=== PATIENT | male | born 1945 | race Caucasian/White ===

== ENCOUNTER 2022-07-26 11:14 | Outpatient (CLI) | payer OTHER, SELFPAY ==
[2022-07-26 12:35] LABS: Basophils Absolute Auto 0.1 K/mm3 (0.0-0.1); Basophils Percent Auto 0.7 % (0.2-1.2); Eosinophils Absolute Auto 0.7 K/mm3 (0-0.3); Eosinophils Percent Auto 7.1 % (0-4.4); Hematocrit 41.1 % (42.0-52.0); Hemoglobin 13.1 g/dL (14.0-18.0); Immature Granulocyte Absolute 0.04 K/mm3 (0.00-0.031); Immature Granulocyte Percent A 0.4 % (0-0.5); Lymphocytes Absolute Auto 1.38 K/mm3 (0.9-3.2); Lymphocytes Percent Auto 13.9 % (18.3-44.2); Mean Corpuscular HGB Conc 31.9 g/dl (32-36); Mean Corpuscular Hemoglobin 31.2 pg (26-34); Mean Corpuscular Volume 97.9 fl (80-100); Mean Platelet Volume 9.3 fl (7.4-10.4); Monocytes Absolute Auto 0.7 K/mm3 (0.1-0.6); Monocytes Percent Auto 7.5 % (2.6-8.5); Neutrophils Percent Auto 70.4 % (45.5-73.1); Platelet Count Result 249 k/mm3 (150-375); Red Cell Distribution Width 13.8 % (11.5-14.5); White Blood Count 9.9 K/mm3 (4.5-10.0)
[2022-07-26 12:46] LABS: Anion Gap 8 mmol/L (8-16); Blood Urea Nitrogen 48 mg/dL (9-20); Calcium 8.7 mg/dL (8.4-10.2); Carbon Dioxide 25 mmol/L (22-30); Chloride 107 mmol/L (98-107); Estimated Glomerular Filt Rate 28; Glucose 146 mg/dL (65-110); Potassium 4.2 mmol/L (3.4-5.0); Sodium 140 mmol/L (137-145)
[2022-07-26 13:13] LABS: Hemoglobin A1C 6.9 % (<5.7)
== END 2022-07-26 11:15 | disposition home or self-care (01) ==
PROVIDERS: PCP Internal Medicine; Visit Provider Surgery Plastic and Reconstructive Surgery
DX: E11.9 Type 2 diabetes mellitus without complications (principal)
CPT/HCPCS: 36415; 80048; 83036; 85025

== ENCOUNTER 2022-08-03 08:46 | Outpatient (CLI) | payer OTHER, SELFPAY ==
--- NOTE | 2022-08-03 09:00 | ECG_ITS ---
Measurements Intervals Wyatt Rate: 76 P: 32 MS: 297 QRS: -12 QRSD: 106 T: 200 QT: 388 QTc: 438 Interpretive Statements SINUS RHYTHM WITH FIRST DEGREE AV BLOCK LEFT VENTRICULAR HYPERTROPHY AND ST-T CHANGE [VOLTAGE CRITERIA PLUS ST/T ABNORMALITY] INFERIOR MYOCARDIAL INFARCTION [40+ ms Q WAVE AND/OR ST/T ABNORMALITY IN II/aVF], OF INDETERMINATE AGE PROBABLE ANTEROSEPTAL MYOCARDIAL INFARCTION [35 ms Q WAVE IN V1-V4], OF INDETERMINATE AGE NO PREVIOUS ECG AVAILABLE FOR COMPARISON Electronically Signed On 08-03-2022 14:51:21 [employer]SEM[employer]PERVIS[employer] by Destinee Deal M.D.
[2022-08-03 10:14] LABS: INR 1.1; Prothrombin Time 13.9 Seconds (11.1-14.7)
== END 2022-08-03 08:47 | disposition home or self-care (01) ==
PROVIDERS: Anesthesiology; PCP Internal Medicine; Visit Provider Surgery Plastic and Reconstructive Surgery
DX: N28.9 Disorder of kidney and ureter, unspecified (principal); I10 Essential (primary) hypertension; Z01.818 Encounter for other preprocedural examination; I44.0 Atrioventricular block, first degree
CPT/HCPCS: 36415; 85610; 85730; 93005

== ENCOUNTER 2022-08-11 01:28 | Day surgery (SDC) | payer OTHER, SELFPAY ==
--- NOTE | 2022-08-02 14:00 | PC.NURSE ---
Report to the Outpatient Waiting Room, entrance under the green pavilion located off [facility], at time __0600 on date _08/11/22 . Planned Procedure Time: _0730 . Time changes happen often and if your time is changed the preop area will call you the afternoon before. - You and your visitor will be asked to self-screen and do not enter if you have any COVID symptoms. - Only one visitor is requested with a max of two and NO children visitors are allowed at this time. - The patient visitor may be requested to leave or wait in car when not with patient due to distancing restrictions. - A mask is optional within the hospital at this time. Patients may have clear liquids (water, carbonated beverages, clear teas, apple juice) until 3 hours prior to surgery with a maximum of 20 ounces. - No food from midnight until time of surgery - Infants may have breast milk until 4 hours before surgery, infant formula 6 hours prior to surgery. - Children will be allowed to drink immediately following surgery. If applicable, please bring a bottle or sippy cup to assist with drinking. Juice, water, soda, and popsicles are readily available. For infants on formula, please bring formula the day of surgery. Pacifiers are allowed. Take the following medications with a SIP of water the morning of surgery: NONE DO NOT STOP ANY OF YOUR OTHER PRESCRIPTION MEDICATIONS PRIOR TO SURGERY ?EXCEPT THE FOLLOWING Medications to discontinue per physician __ELIQUIS AND ASPIRIN _PER DR HUERTAS (PT TO CALL) Please no make-up, nail paraguayan, hairspray, perfume, deodorant, or body powder the day of surgery. No jewelry (including any body piercings) or valuables the day of surgery, leave them at home. Please take a shower or bath the night before, or the morning of, surgery with an antibacterial soap. Wear comfortable, loose fitting clothing. Children are encouraged to wear pajamas. - Jewelry must be removed prior to entering the operating room. Rings and piercings that are not removed may be cut off. - The hospital will not accept responsibility for valuables. - Please leave all valuables, including medications, at home the day of surgery. If you are going home after surgery, a licensed delivery truck driver must drive you home. - NO public transportation without another adult if you receive anesthesia. - We recommend that an adult stay with you for 24 hours following discharge. - We also recommend that you do not drive, make important decision, drink alcoholic beverages, or take any drugs that were not prescribed by your health care provider for at least 24 hours after your discharge time. For Pediatric surgeries, we recommend two adults accompany the child home. Follow any additional instructions given to you from your surgeon. If you or anyone in your household have experienced Covid symptoms in the past week, please notify your surgeon or the nurse liaison at the phone number below for possible testing. Telephone instructions given to _PATIENT and asked if any additional questions and then verbalized understanding. Patient advised to call surgeon office or pre surgery nurse liaison [phone] if any additional questions.
[2022-08-02 14:13] VITALS: BMI 30.2
[2022-08-11] VITALS (19 sets, daily range): BP systolic 136–180; BP diastolic 52–110; PULSE 75–100; RESP 14–30; TEMP 36.6–37.3; O2SAT 94–99
[2022-08-11 06:21] LABS: Urine Cotinine NEGATIVE
[2022-08-11] MEDS: LACTATED RINGERS 1,000 ML 30 ML IV CONT ×2 (06:30→09:53)
[2022-08-11 06:35] LABS: Glucose Point of Care 147 mg/dl (65-105)
--- NOTE | 2022-08-11 06:39 | WPDANESEPPF ---
Anes - Initial Pre Proc Eval Procedure: Operation Date: 08/11/22 07:30 Proposed Procedures p Abdominoplasty - Ken Doyle MD Date/Time: 08/11/22 06:39 Surgeon: Ken Doyle MD Pre Op Diagnosis: skin laxity Patient Data Age: 77 Gender: M Height: 1.75 m Weight: 93.05 kg Allergies Allergy/AdvReac Type Severity Reaction Status Date / Time ANTIHISTAMINES AdvReac Hypertensio Uncoded 08/02/22 14:07 n Home Medications Medication Instructions Recorded Confirmed Type acetaminophen 325 mg tablet 325 mg PO PRN PRN Pain 08/02/22 08/11/22 History (Tylenol) apixaban 5 mg tablet (Eliquis) 5 mg PO BID 08/02/22 08/11/22 History aspirin 81 mg tablet,delayed 81 mg PO DAILY 08/02/22 08/11/22 History release (Adult Low Dose Aspirin) atorvastatin 40 mg tablet 40 mg PO DAILY 08/02/22 08/11/22 History empagliflozin 10 mg tablet 10 mg PO DAILY 08/02/22 08/11/22 History (Jardiance) furosemide 40 mg tablet 40 mg PO DAILY 08/02/22 08/11/22 History indapamide 2.5 mg tablet 2.5 mg PO DAILY 08/02/22 08/11/22 History insulin lispro 100 unit/mL 1 sliding scale dose subcut 08/02/22 08/11/22 History subcutaneous solution (Humalog USEASDIRECTD U-100 Insulin) losartan 100 mg tablet 100 mg PO DAILY 08/02/22 08/11/22 History nintedanib 100 mg capsule (Ofev) 100 mg PO BID 08/02/22 08/11/22 History zolpidem 5 mg tablet 5 mg PO HS 08/02/22 08/11/22 History Laboratory Tests 08/11/22 08/11/22 06:05 06:33 POC Capillary Glucose 147 mg/dl H mg/dl (65-105) Cotinine Negative Patient hx anesthesia problems: none Family hx anesthesia problems: none Results Review: All pre-operative results and documents have been reviewed as part of the pre-operative evaluation. [facility] Past Medical History Medical History (Updated 08/11/22 @ 06:44 by Mihir Vergara MD) History of home oxygen therapy oxygen use at night and some days with exertion Obesity SAHIL on CPAP Pacemaker Paroxysmal A-fib Pulmonary fibrosis SOB (shortness of breath) on exertion Surgical History Surgical History (Updated 08/11/22 @ 06:41 by Mihir Vergara MD) History of cholecystectomy Social History Social History Smoking status: Never smoker Living arrangements: alone Spiritual care concerns: No Anes - Eval Final PreProcedure Day of Procedure 08/11/22 06:39 Patient weight: obese Heart: regular rate and rhythm (paced) Lungs: decreased breath sounds Airway: Mallampati scale class III Neurological: alert and oriented Last oral intake: >/= 8 hours ASA classification: IV Emergent: no Anesthetic plan: proceed Anesthesia type and monitoring: general ETT and standard monitoring Results Review: All pre-operative results and documents have been reviewed as part of the pre-operative evaluation. Informed Consent: The patient's anesthetic plan and its attendant risks including , PA, arrhythmia, ICU admission, post-op ventilation and benefits were discussed with the patient. He agrees to proceed. I reviewed his pre-op testing and notes of clearance from his primary doctor. Questions were solicited and answers provided to the satisfaction of the patient.
--- NOTE | 2022-08-11 06:55 | WPDHPUPDATE1 ---
History and Physical Update Update Date/Time: 08/11/22 06:55 History and Physical has been reviewed, including an updated exam of the patient. There are NO changes in the patient's condition. Today we spent extensive time again reviewing his medical / surgical history and unique risks to him including [id number] risks and risk of . We discussed how this is an elective surgery and he must understand these risks (which have been discussed extensively at each of his office visits as well). He is able to very clearly repeat these risks back to us, states the he completely understands this, that he is willing to accept these risks, and he would like to proceed. He has been evaluated by his PCP and anesthesia for this as well who he states that they have outlined these risks very clearly to him as well. He states that he has had plenty of time to think about this and has never wavered in his decision, understands the severity of what he has elected to do, understands the severity of his unique risk, and would like to proceed. All questions answered today to his satisfaction. Patient agrees to proceed with procedure.
--- NOTE | 2022-08-11 07:03 | W.PM.PROC2 ---
Procedure Note - Detailed Date of Procedure 08/11/22 Pre-op Diagnosis skin laxity Post-op Diagnosis Same Procedure Performed Progressive tension abdominoplasty Surgeon Ken Doyle MD Anesthesia General Findings Tissue removed: 2246.1 grams Description of Procedure He is here today for abdominoplasty. Previously and again today the risks, benefits, alternatives were discussed in extensive detail (see H&P update note). I wanted him to be very realistic about the risks involved as well as expectations. We discussed aftercare and what to monitor for. I was very upfront about the risks of wound breakdown leading to loss of skin, open wounds, and need for additional procedures with permanent abdominal deformity. We discussed DVT/PE risks and management. Made sure answered all of their questions to their satisfaction today and consent was obtained. They were marked in the preoperative holding area with their verification. The patient was taken to the operating room placed supine on the operating table. Anesthesia was provided by anesthesiology. They were prepped and draped in a standard sterile fashion. A surgical time-out was taken. I placed the patient in a flexed position to verify the upper and lower markings would reach. I then placed supine. A thorough abdominal examination was completed. Stab incisions were made and tumescent solution infiltrated. A 10 blade was used to make the upper incision. I continued dissection down to the level of fascia. Elevated just what was necessary for repair of the diastasis (10cm diastasis present) and advancement of flap preserving perforators when possible. I then again flexed the bed to verify the upper skin flap would reach the lower markings without tension. Once verified I placed her supine once again and a 10 blade used to make the lower incision. I elevated up to level the umbilicus and left the umbilicus intact on a well-vascularized stalk. The intervening tissue was removed. A 2 mm blunt cannula with 0.5% bupivicaine was injected deep to the fascia bilaterally. I plicated the diastasis recti using 0 PDO stratafix barbed suture. This was in 2 separate layers using 2 separate sutures as well. The patient was flexed and starting from superior to inferior began plication using 2-0 Vicryl to obliterate all space in a standard progressive tension fashion. At the umbilicus I marked out the location of the skin and inset this with 3-0 Monocryl and 4-0 Vicryl. I continued the remainder of the plication using 2-0 Vicryl until I reached my lower planned scar line. I trimmed any excess skin of the upper flap making sure this was a tension-free closure. I then approximated using a 3 point suture with 2-0 Vicryl followed by 3-0 stratafix ,running subcuticular 4-0 Monocryl, and tissue glue. Fluffs and an abdominal binder were placed. The patient was transferred to the bed in a flexed position. Awoken and taken to the PACU without difficulty. All instrument and sponge counts were correct at the end of the case. Estimated Blood Loss 40 Drains No Packing No Pathology None sent Complications No immediate complications Condition Stable Disposition PACU
[2022-08-11] MEDS: ceFAZolin 2 GM/D5W 50 ML 2 GM/50 ML BAG IVPB (07:23)
[2022-08-11] MEDS: TRANEXAMIC ACID 1,000MG/ISO100 1,000 MG/100 ML BAG 200 MG IVPB (07:35)
[2022-08-11] MEDS: LACTATED RINGERS IRRIG 1,000 ML, LIDOCAINE HCL 1% LOCAL INJ 50 ML, EPINEPHrine HCL INJ ... INFILTRATE (07:59)
[2022-08-11] MEDS: BUPIVACAINE/EPINEPHRINE 0.5% 10 ML VIAL 60 ML INFILTRATE (08:04)
[2022-08-11 10:12] LABS: Glucose Point of Care 216 mg/dl (65-105)
--- NOTE | 2022-08-11 10:47 | SUR.PHASEI ---
Patient meets PACU discharge criteria, unit bed unavailable at this time. Patient placed in extended recovery status.
[2022-08-11] MEDS: carisoprodoL (*CRX) 350 MG TABLET PO ×3 (12:49→23:31)
[2022-08-11 12:50] LABS: Glucose Point of Care 208 mg/dl (65-105)
[2022-08-11] MEDS: oxyCODONE/ACETAMINOPHEN (*CRX) 5-325 MG TABLET PO ×2 (14:01→20:13)
--- NOTE | 2022-08-11 15:38 | ADMGEN ---
This patient, Brett Cornelius, was admitted to Medical Room 244-01. Patient/family oriented to hospital policies and general routines including ID bracelet, bed and alarms, visiting hours, pain management, procedures, bathroom and other care routines, personal items, smoking policy, room service/diet, and visiting hours. Information on how to activate the Rapid Response Team has been discussed. Patient/Family are encouraged to report perceived risks to care and to ask questions if they do not understand what they are told or what they should do.
[2022-08-11 16:56] LABS: Glucose Point of Care 252 mg/dl (65-105)
[2022-08-11] MEDS: DOCUSATE SODIUM 100 MG CAPSULE PO (21:39)
--- NOTE | 2022-08-11 22:00 | WPDCN ---
Assessment and Plan Assessment and plan (1) Skin laxity: Code(s): L57.4 - Cutis laxa senilis Status: Acute Assessment and Plan: Postoperative day 0 status post elective abdominoplasty. Wound care, pain control, DVT prophylaxis deferred to Dr. Doyle. (2) Insulin dependent diabetes mellitus: Status: Chronic Assessment and Plan: He is on insulin pump but unfortunately he removed at this morning and does not have that here for review. He does not know his basal insulin rate and I cannot find any documentation his EMR to tell me his insulin requirements. We discussed starting a weight appropriate dose of Lantus this evening and he can resume his insulin pump tomorrow when he goes home however he would rather do sliding scale insulin as he has a tendency to have low glucose in the morning. Initiate sliding scale insulin, Accu-Cheks, and hypoglycemic protocol. Continue empagliflozin. (3) Hypertension: Code(s): I10 - Essential (primary) hypertension Status: Acute Assessment and Plan: Blood pressures were reviewed and they have been stable postoperatively. Continue antihypertensives and monitor. (4) Chronic kidney disease: Code(s): N18.9 - Chronic kidney disease, unspecified Status: Acute Assessment and Plan: Patient has stage IV chronic kidney disease. Check baseline labs in a.m.. (5) Chronic respiratory failure with hypoxia, on home oxygen therapy: Code(s): J96.11 - Chronic respiratory failure with hypoxia; Z99.81 - Dependence on supplemental oxygen Status: Acute Assessment and Plan: Wear CPAP with 4 L bleed in at nighttime. CPAP will be provided for the patient to use while hospitalized. (6) Paroxysmal atrial fibrillation: Code(s): I48.0 - Paroxysmal atrial fibrillation Status: Acute Assessment and Plan: Currently sounds to be in a sinus rhythm. Resume apixaban when okay with Dr. Doyle. (7) Obstructive sleep apnea on CPAP: Code(s): G47.33 - Obstructive sleep apnea (adult) (pediatric); Z99.89 - Dependence on other enabling machines and devices Status: Acute Assessment and Plan: CPAP will be provided for the patient to use while hospitalized. Plan Thank you for allowing us to participate in this patient's care. Please do not hesitate to contact us with any questions. HPI Data of Consult Date/Time: 08/11/22 22:00 Requesting Physician: Ken Doyle MD Consult Narrative Reason for consult: Diabetes management. Narrative: This is a 77-year-old male with insulin-dependent diabetes, hypertension, hyperlipidemia, pulmonary fibrosis, sleep apnea, and chronic kidney disease whom the hospitalist service has been consulted for help managing his diabetes postoperatively. He is status post abdominoplasty per Dr. Doyle today. Surgery was performed under general anesthesia with no immediate complications documented an estimated blood loss of 40 mL. Postoperatively he has been doing quite well and his pain is manageable. He has been tolerating a diet and denies nausea and vomiting. He also denies fever, chills, and sweats. No chest pain or shortness of breath. He removed his insulin pump this morning before surgery and his glucose has been as high as 252 just prior to dinner this evening. Unfortunately he does not know his basal insulin rate and he does not have his pump here to obtain that information. He believes his diabetes is well controlled and his most recent A1c was 6.9%. Review of Systems Review of Systems: Twelve systems were reviewed. No fever, chills, or sweats. No recent cold or flu symptoms. No chest pain or shortness of breath. No nausea or vomiting. He denies blurry vision, polydipsia, and polyuria. Except as documented, all other systems were reviewed and are negative. [facility] Past Medical History Medical History (Updated 08/11/22 @ 22:34 by Carin Mcdaniel,
[2022-08-11 22:33] LABS: Glucose Point of Care 219 mg/dl (65-105)
[2022-08-11 23:07] LABS: Glucose Point of Care 200 mg/dl (65-105)
[2022-08-12] VITALS: BP 135/64; PULSE 88; RESP 18; TEMP 37.1; O2SAT 96
[2022-08-12 06:00] VITALS: BP 129/61; PULSE 86; RESP 18; TEMP 37.1; O2SAT 96
[2022-08-12 06:13] LABS: Hematocrit 33.3 % (42.0-52.0); Hemoglobin 10.8 g/dL (14.0-18.0); Mean Corpuscular HGB Conc 32.4 g/dl (32-36); Mean Corpuscular Hemoglobin 30.8 pg (26-34); Mean Corpuscular Volume 94.9 fl (80-100); Mean Platelet Volume 9.2 fl (7.4-10.4); Platelet Count Result 197 k/mm3 (150-375); Red Blood Count 3.51 M/mm3 (4.6-6.20); White Blood Count 10.7 K/mm3 (4.5-10.0)
[2022-08-12] MEDS: carisoprodoL (*CRX) 350 MG TABLET PO (06:19)
[2022-08-12] MEDS: oxyCODONE/ACETAMINOPHEN (*CRX) 5-325 MG TABLET PO (06:19)
[2022-08-12 06:23] LABS: Alanine Aminotransferase 18 U/L (6-50); Albumin Level 3.4 g/dL (3.5-5.1); Alkaline Phosphatase 111 U/L (38-126); Anion Gap 7 mmol/L (8-16); Aspartate Amino Transferase 20 U/L (17-59); Bilirubin,Total 0.5 mg/dL (0.2-1.3); Blood Urea Nitrogen 52 mg/dL (9-20); Calcium 7.8 mg/dL (8.4-10.2); Carbon Dioxide 24 mmol/L (22-30); Chloride 106 mmol/L (98-107); Estimated CRCL calculation 25 ml/min; Estimated Glomerular Filt Rate 24; Glucose 174 mg/dL (65-110); Magnesium 1.7 mg/dL (1.6-2.3); Potassium 4.6 mmol/L (3.4-5.0); Sodium 137 mmol/L (137-145)
--- NOTE | 2022-08-12 07:08 | WPDPN ---
Progress Note: A&P Assessment and Plan (1) Skin laxity: Code(s): L57.4 - Cutis laxa senilis Status: Acute Assessment and Plan: Doing well. Will plan for discharge home later today if OK with hospitalist. May start Eliquis today. I will see him back. Today we had a lengthy discussion about the care. What to monitor for. Activity limitations. When to proceed to ER / dial 911 for emergencies. Call with any other questions or concerns. Lengthy open ended conversation, he voiced a clear understanding, we will see him back. (2) Hyperlipidemia: Code(s): E78.5 - Hyperlipidemia, unspecified Status: Acute (3) Hypertension: Code(s): I10 - Essential (primary) hypertension Status: Acute (4) Chronic kidney disease: Code(s): N18.9 - Chronic kidney disease, unspecified Status: Acute (5) Insulin dependent diabetes mellitus: Status: Chronic (6) Chronic respiratory failure with hypoxia, on home oxygen therapy: Code(s): J96.11 - Chronic respiratory failure with hypoxia; Z99.81 - Dependence on supplemental oxygen Status: Acute (7) Paroxysmal atrial fibrillation: Code(s): I48.0 - Paroxysmal atrial fibrillation Status: Acute (8) Obstructive sleep apnea on CPAP: Code(s): G47.33 - Obstructive sleep apnea (adult) (pediatric); Z99.89 - Dependence on other enabling machines and devices Status: Acute Subjective Date/time seen: 08/12/22 06:35 Interval history: Doing well after progressive tension abdominoplasty. Appreciate hospitalist assistance. He states he feels well. Pain controlled. No n/v. No f/c. No SOB. No CP. No calf tenderness. Review of Systems Review of Systems: All systems reviewed & are unremarkable except as noted in HPI and below Exam Narrative: A&O NOD Resp unlabored Abdomen soft. No signs of infection. No hematoma. No seroma. Good color / capillary refill. No calf tenderness. Negative Homann's Objective Data Vital Signs Vital Signs: Vital Signs - 24 hr 08/11/22 09:53 08/11/22 10:05 08/11/22 10:15 Temperature 37.3 C Pulse Rate 97 95 93 Respiratory Rate 30 H 25 H 22 H Blood Pressure 157/62 H 180/69 H 146/81 H Pulse Oximetry 99 99 95 Oxygen Delivery Simple Face Mask Simple Face Mask Room Air Oxygen Flow Rate 8 8 08/11/22 10:30 08/11/22 10:42 08/11/22 10:50 Temperature 36.6 C Pulse Rate 86 81 89 Respiratory Rate 20 24 H 18 Blood Pressure 160/77 H 155/80 H 160/74 H Pulse Oximetry 96 96 94 Oxygen Delivery Room Air Room Air Room Air Oxygen Flow Rate 08/11/22 11:05 08/11/22 11:20 08/11/22 11:35 Temperature Pulse Rate 85 88 81 Respiratory Rate 16 18 16 Blood Pressure 141/66 H 139/61 137/62 Pulse Oximetry Oxygen Delivery Room Air Room Air Room Air Oxygen Flow Rate 08/11/22 11:50 08/11/22 12:20 08/11/22 12:50 Temperature Pulse Rate 87 84 75 Respiratory Rate 16 14 18 Blood Pressure 148/65 H 136/52 L 151/65 H Pulse Oximetry Oxygen Delivery Room Air Room Air Room Air Oxygen Flow Rate 08/11/22 13:20 08/11/22 13:50 08/11/22 14:20 Temperature 36.9 C Pulse Rate 100 94 96 Respiratory Rate 14 16 16 Blood Pressure 146/85 H 142/68 H 150/110 H Pulse Oximetry 96 Oxygen Delivery Room Air Room Air Room Air Oxygen Flow Rate 08/11/22 14:50 08/11/22 16:00 08/11/22 16:42 Temperature 36.9 C Pulse Rate 91 81 Respiratory Rate 16 18 Blood Pressure 136/75 142/61 H Pulse Oximetry 96 Oxygen Delivery Room Air Room Air Oxygen Flow Rate 08/11/22 20:00 08/12/22 00:00 Temperature 36.8 C 37.1 C Pulse Rate 79 88 Respiratory Rate 18 18 Blood Pressure 166/84 H 135/64 Pulse Oximetry 97 96 Oxygen Delivery Oxygen Flow Rate Intake/Output Intake/Output: Intake & Output 08/09/22 08/10/22 08/11/22 08/12/22 23:59 23:59 23:59 23:59 Intake Total 1230 Output Total 900 Balance 330 Meds/Results Medications: Active Medications
--- NOTE | 2022-08-12 07:12 | PM.DS ---
DS: Admitting Diagnosis Discharge Date 08/12/2022 Admitting Diagnosis Skin laxity CKD HTN Insulin dependant DM DS: Discharge Diagnosis Discharge Diagnosis (1) Skin laxity: Code(s): L57.4 - Cutis laxa senilis Status: Acute (2) Hypertension: Code(s): I10 - Essential (primary) hypertension Status: Acute (3) Hyperlipidemia: Code(s): E78.5 - Hyperlipidemia, unspecified Status: Acute (4) Chronic kidney disease: Code(s): N18.9 - Chronic kidney disease, unspecified Status: Acute (5) Insulin dependent diabetes mellitus: Status: Chronic (6) Chronic respiratory failure with hypoxia, on home oxygen therapy: Code(s): J96.11 - Chronic respiratory failure with hypoxia; Z99.81 - Dependence on supplemental oxygen Status: Acute (7) Paroxysmal atrial fibrillation: Code(s): I48.0 - Paroxysmal atrial fibrillation Status: Acute (8) Obstructive sleep apnea on CPAP: Code(s): G47.33 - Obstructive sleep apnea (adult) (pediatric); Z99.89 - Dependence on other enabling machines and devices Status: Acute DS: Summary Hospital Course Hospital Course: Underwent progressive tension abdominoplasty uneventfully. Hospitalist assistance with chronic medical concerns. Post-operatively has done well. Will discharge home. Time Spent with Patient Time attestation: Total time spent providing and/or coordinating discharge services: Exam Narrative: A&O NOD Resp unlabored Abdomen soft. No signs of infection. No hematoma. No seroma. Good color / capillary refill. No calf tenderness. Negative Homann's DS: Data Data Completed and Pending Labs on day of discharge: Labs from last 24 hours 08/12/22 08/12/22 08/11/22 05:31 05:31 23:03 WBC 10.7 H RBC 3.51 L Hgb 10.8 L Hct 33.3 L MCV 94.9 MCH 30.8 MCHC 32.4 RDW 14.0 Plt Count 197 MPV 9.2 Sodium 137 Potassium 4.6 Chloride 106 Carbon Dioxide 24 Anion Gap 7 L BUN 52 H Creatinine 2.60 H Estim Creat Clear Calc 25 Estimated GFR 24 L Glucose 174 H POC Capillary Glucose 200 H Calcium 7.8 L Magnesium 1.7 Total Bilirubin 0.5 AST 20 ALT 18 Alkaline Phosphatase 111 Total Protein 7.0 Albumin 3.4 L 08/11/22 08/11/22 08/11/22 21:42 16:49 12:46 WBC RBC Hgb Hct MCV MCH MCHC RDW Plt Count MPV Sodium Potassium Chloride Carbon Dioxide Anion Gap BUN Creatinine Estim Creat Clear Calc Estimated GFR Glucose POC Capillary Glucose 219 H 252 H 208 H Calcium Magnesium Total Bilirubin AST ALT Alkaline Phosphatase Total Protein Albumin 08/11/22 10:01 WBC RBC Hgb Hct MCV MCH MCHC RDW Plt Count MPV Sodium Potassium Chloride Carbon Dioxide Anion Gap BUN Creatinine Estim Creat Clear Calc Estimated GFR Glucose POC Capillary Glucose 216 H Calcium Magnesium Total Bilirubin AST ALT Alkaline Phosphatase Total Protein Albumin Discharge Plan Discharge Patient Disposition: Home, Self-Care Discharge Instructions: POST OPERATIVE DISCHARGE INSTRUCTIONS VERONIKA HUERTAS M.D. [facility] PLASTIC SURGERY [facility] [address] [place] [address] [address] for 24 hours after anesthesia and while you are taking pain medication. Take all prescribed medication as directed Diet as tolerated. No lifting or activity that raises blood pressure for 48 hours. Regular walking / ambulation. May shower 24 hours after surgery. Once you shower do not take pain medication before showering as the combination of medication and heat may cause you to feel dizzy or pass out. No pools or tubs for 2 weeks. Slowly stand up straight as tolerated. No straining or lifting more than 20 pounds. If no bowel movement within 24 hours may use laxativ
[2022-08-12 08:37] LABS: Glucose Point of Care 181 mg/dl (65-105)
[2022-08-12] MEDS: ATORVASTATIN 40 MG TABLET PO (08:39)
[2022-08-12] MEDS: EMPAGLIFLOZIN 10 MG TABLET PO (08:39)
[2022-08-12] MEDS: INDAPAMIDE 2.5 MG TABLET PO (08:40)
[2022-08-12] MEDS: APIXABAN 5 MG TABLET PO (08:40)
[2022-08-12] MEDS: LOSARTAN POTASSIUM 100 MG TABLET PO (08:40)
[2022-08-12] MEDS: FUROSEMIDE 40 MG TABLET PO (08:40)
[2022-08-12] MEDS: ASPIRIN 81 MG ENTERIC TABLET PO (08:40)
--- NOTE | 2022-08-12 09:23 | WPDANESPN ---
Anes - Prog Note Post-Op Date/Time: 08/12/22 08:54 Cardiovascular status: normal Respiratory status: normal Airway patency: baseline Mental status: baseline Post-Op hydration status: normal Vital Signs: Last Vital Signs Temp 98.8 F 08/12/22 06:00 Pulse 86 08/12/22 06:00 Resp 18 08/12/22 06:00 BP 129/61 08/12/22 06:00 Pulse Ox 96 08/12/22 06:00 O2 Del Method Room Air 08/12/22 08:40 O2 Flow Rate 8 08/11/22 10:05 Pain Score (VAS): 0 I/O: Intake & Output 08/11/22 08/12/22 08/12/22 23:59 07:59 15:59 Intake Total 540 500 480 Output Total 500 800 Balance 40 -300 480 Laboratory Tests 08/12/22 05:31 08/12/22 05:31 08/11/22 08/11/22 08/11/22 10:01 12:46 16:49 WBC RBC Hgb Hct MCV MCH MCHC RDW Plt Count MPV Sodium Potassium Chloride Carbon Dioxide Anion Gap BUN Creatinine Estim Creat Clear Calc Estimated GFR Glucose POC Capillary Glucose 216 H 208 H 252 H Calcium Magnesium Total Bilirubin AST ALT Alkaline Phosphatase Total Protein Albumin 08/11/22 08/11/22 08/12/22 21:42 23:03 05:31 WBC 10.7 H RBC 3.51 L Hgb 10.8 L Hct 33.3 L MCV 94.9 MCH 30.8 MCHC 32.4 RDW 14.0 Plt Count 197 MPV 9.2 Sodium Potassium Chloride Carbon Dioxide Anion Gap BUN Creatinine Estim Creat Clear Calc Estimated GFR Glucose POC Capillary Glucose 219 H 200 H Calcium Magnesium Total Bilirubin AST ALT Alkaline Phosphatase Total Protein Albumin 08/12/22 08/12/22 05:31 08:25 WBC RBC Hgb Hct MCV MCH MCHC RDW Plt Count MPV Sodium 137 Potassium 4.6 Chloride 106 Carbon Dioxide 24 Anion Gap 7 L BUN 52 H Creatinine 2.60 H Estim Creat Clear Calc 25 Estimated GFR 24 L Glucose 174 H POC Capillary Glucose 181 H Calcium 7.8 L Magnesium 1.7 Total Bilirubin 0.5 AST 20 ALT 18 Alkaline Phosphatase 111 Total Protein 7.0 Albumin 3.4 L Post-procedural complaints: none Patient Feedback: Patient satisfied with anesthetic care.
== END 2022-08-12 09:38 | disposition home or self-care (01) ==
LOC: ANHSURGERY 07:05 → ANH2MED 15:13
PROVIDERS: Physician Assistant; PCP Internal Medicine; Visit Provider Surgery Plastic and Reconstructive Surgery
PROC: (CPT 15830; principal; 2022-08-11 07:30)
DX: Z41.1 Encounter for cosmetic surgery (principal); L57.4 Cutis laxa senilis; I12.9 Hypertensive chronic kidney disease with stage 1 through stage 4 chronic kidney disease, or unspecified chronic kidney disease; E11.22 Type 2 diabetes mellitus with diabetic chronic kidney disease; N18.9 Chronic kidney disease, unspecified; J96.11 Chronic respiratory failure with hypoxia; I48.0 Paroxysmal atrial fibrillation; G47.33 Obstructive sleep apnea (adult) (pediatric); E78.5 Hyperlipidemia, unspecified; J84.10 Pulmonary fibrosis, unspecified; K21.9 Gastro-esophageal reflux disease without esophagitis; Z96.41 Presence of insulin pump (external) (internal); Z79.4 Long term (current) use of insulin; Z99.81 Dependence on supplemental oxygen; Z95.0 Presence of cardiac pacemaker; Z79.01 Long term (current) use of anticoagulants; Z79.82 Long term (current) use of aspirin; Z99.89 Dependence on other enabling machines and devices; Z79.899 Other long term (current) drug therapy
CPT/HCPCS: 15830; 15847; 36415; 80053; 80307; 82948; 83735; 85027; A9270; J0171; J0330; J0690; J1100; J1170; J2405; J2704; J3010; J7120

== ENCOUNTER 2022-09-15 11:16 | Inpatient (IN) | payer OTHER, MEDICARE, SELFPAY ==
[2022-09-15] VITALS (17 sets, daily range): BP systolic 122–153; BP diastolic 46–66; PULSE 59–84; RESP 13–29; TEMP 36.7–38.6; O2SAT 93–100; BMI 29.2
--- NOTE | ~2022-09-15 | XR_ITS ---
Portable chest x-ray Comparison: None Clinical History: Weakness Findings: There is bibasilar probable chronic interstitial disease with basilar and peripheral promi nence. Cardiomediastinal silhouette is prominent, with pacemaker device. Bones and soft tissues are unremarkable. Impression: Probable moderate to advanced chronic interstitial disease versus possibly pulmonary edema. Correlate clinically. Pacemaker is. Reviewed, dictated and finalized at [facility] [place] [facility]. Impression: Probable moderate to advanced chronic interstitial disease versus possibly pulm onary edema. Correlate clinically. Pacemaker is.
--- NOTE | ~2022-09-15 | CT_ITS ---
EXAMINATION: CT abdomen pelvis w con DATE: 09/15/2022 12:55 INDICATION: Status post abdominoplasty. Abscess. TECHNIQUE: Computed tomography (CT) of the abdomen and pelvis was performed with 100 CC Omnipaque 350 intravenous contrast. Automated exposure control and iterative reconstruction technique were employe d. Exam dose: 714.73 mGy-cm total exam DLP. COMPARISON: None. FINDINGS: There is patchy bilateral lower lung infiltrate, atelectasis and/or fibrotic change. Right atrial and right ventricular pacemaker leads. Cardiomegaly. Coronary artery calcification. No pericardial or pleural effusion. Status post cholecystectomy. No hepatic, splenic, pancreatic, adrenal or renal space-occupying mass l esion is detected. No bile duct or pancreatic duct dilatation. No urinary tract calculus or hydrouret eronephrosis. There is calcification of the abdominal aorta and prominent calcification at the origins of celiac, s uperior mesenteric and renal arteries, inferior mesenteric artery. No abdominal aortic aneurysm. No intraperitoneal or retroperitoneal or pelvic mass lesion or adenopathy or ascites. The urinary bladder is unremarkable. Penile implant. Diverticulosis of left colon; no CT evidence of diverticulitis. Normal appendix. No bowel obstruction , bowel wall thickening, pneumatosis or intraperitoneal free air. There is extensive fat stranding and subcutaneous emphysema of the ventral abdominal and pelvic pierson No suspicious osteolytic or osteoblastic lesions. Likely chronic mild anterior wedge compression frac ture deformities of T12 and L1. IMPRESSION: Extensive ventral abdominal wall and pelvic fat stranding of subcutaneous emphysema, Infiltrate, atelectasis and/or further change of the lower lung zones Cardiomegaly, coronary atherosclerosis Right atrial and right ventricular pacemaker leads Status post cholecystectomy Diverticulosis of the colon; no evidence of diverticulitis Normal appendix Reviewed, dictated and finalized at [facility]. Reviewed, dictated and finalized at [facility]. IMPRESSION: Extensive ventral abdominal wall and pelvic fat stranding of subcu taneous emphysema, Infiltrate, atelectasis and/or further change of the lower lung zones Cardiomegaly, coronary atherosclerosis Right atrial and right ventricular pacemaker leads Status post cholecystectomy Diverticulosis of the colon; no evidence of diverticulitis Normal appendix
--- NOTE | 2022-09-15 11:28 | ECG_ITS ---
Measurements Intervals [place] Rate: 62 P: 69 NV: 242 QRS: 1 QRSD: 105 T: -37 QT: 405 QTc: 413 Interpretive Statements SINUS RHYTHM WITH FIRST DEGREE AV BLOCK LEFT VENTRICULAR HYPERTROPHY WITH ST-T CHANGE ANTEROSEPTAL INFARCT, AGE INDETERMINATE CONSIDER INFERIOR INFARCT, AGE INDETERMINATE BASELINE WANDER- V4-V5 ABNORMAL ECG COMPARED TO ECG 08/03/2022 09:21:16 NO SIGNIFICANT CHANGES Electronically Signed On 09-15-2022 14:20:32 CDT by Benson Tolentino D.O.
[2022-09-15 11:31] LABS: Glucose Point of Care 178 mg/dl (65-105)
[2022-09-15 11:38] LABS: Hematocrit 33.1 % (42.0-52.0); Mean Corpuscular HGB Conc 33.2 g/dl (32-36); Mean Corpuscular Hemoglobin 31.2 pg (26-34); Mean Corpuscular Volume 93.8 fl (80-100); Mean Platelet Volume 8.9 fl (7.4-10.4); Platelet Count Result 269 k/mm3 (150-375); Red Blood Count 3.53 M/mm3 (4.6-6.20); Red Cell Distribution Width 13.9 % (11.5-14.5); White Blood Count 8.7 K/mm3 (4.5-10.0)
[2022-09-15] MEDS: ONDANSETRON INJ 4 MG/2 ML VIAL IV PUSH (11:38)
[2022-09-15] MEDS: SODIUM CHLORIDE 0.9% IV 2,500 ML/1,000 ML BAG 999 ML IV CONT (11:38)
[2022-09-15 11:48] LABS: Band Neutrophils Percent 27 % (0-6); Monocytes Absolute Manual 1.04 K/mm3 (0.1-0.90); Monocytes Percent Manual 12 % (3-9); Neutrophils Absolute Manual 6.35 K/mm3 (1.3-6.7); Neutrophils Percent Manual 46 % (46-73); Platelet Estimate Adequate (Adequate); Total Cells Counted 100
[2022-09-15 11:49] LABS: Schistocytes None Seen (NORMAL)
[2022-09-15 11:49] LABS: Alveolar/Arterial O2 Gradient 30.8 mmHg; Base Excess ABG -3.2 mEq/l (+/-2.0); Carboxyhemoglobin 0.8 % THb (0-2.0); Fractional Inspired Oxygen 21 %; HCO3 ABG 20.8 mEq/l (22.0-26.0); Methemoglobin ABG 0.3 %THb (0-1.5); Oxygen Content ABG 13.5 %vol (16.0-22.0); Oxyhemoglobin 93.6 % THb (90.0-100.0); PCO2 ABG 33.3 mmHg (35.0-45.0); PO2 ABG 79.1 mmHg (80.0-100.0); PO2 FiO2 Ratio Arterial Blood 3.77 %; Reduced Hemoglobin 5.3 %THb (0-5.0); Total Hemoglobin 10.2 g/dL (12.0-18.0); pH ABG 7.413 (7.350-7.450)
[2022-09-15 11:50] LABS: Device ROOM AIR; Site Drawn LEFT BRACHIAL
[2022-09-15 11:52] LABS: Lactic Acid Reflex 1.9 mmol/L (0.7-2.0); Magnesium 1.7 mg/dL (1.6-2.3)
[2022-09-15 11:55] LABS: Beta-Hydroxybutyrate/Acetoacetate 1.01 mmol/L (0.02-0.27)
[2022-09-15 11:56] LABS: INR 1.2; Prothrombin Time 14.9 Seconds (11.1-14.7)
[2022-09-15 11:57] LABS: Partial Thromboplastin Time 34.1 SECONDS (22.3-36.8)
[2022-09-15 12:04] LABS: Alanine Aminotransferase 67 U/L (6-50); Albumin Level 3.6 g/dL (3.5-5.1); Alkaline Phosphatase 190 U/L (38-126); Anion Gap 10 mmol/L (8-16); Aspartate Amino Transferase 58 U/L (17-59); Bilirubin,Total 0.6 mg/dL (0.2-1.3); Blood Urea Nitrogen 57 mg/dL (9-20); Calcium 8.8 mg/dL (8.4-10.2); Carbon Dioxide 21 mmol/L (22-30); Chloride 98 mmol/L (98-107); Estimated CRCL calculation 27 ml/min; Estimated Glomerular Filt Rate 31; Glucose 177 mg/dL (65-110); Potassium 3.7 mmol/L (3.4-5.0); Sodium 129 mmol/L (137-145)
[2022-09-15 12:20] LABS: CRP 24.8 mg/dL (<1.0)
--- NOTE | 2022-09-15 12:57 | ED.GENADULT ---
HPI - General Adult General Chief complaint: Abdominal Pain Stated complaint: Post op Abd site possible infection Time Seen by Provider: 09/15/22 11:25 Source: patient, RN notes reviewed and old records reviewed Mode of arrival: ambulatory Limitations: no limitations History of Present Illness HPI narrative: This is a 77 year old male with history of chronic lung disease and DM who presents for evaluation of postoperative infection. Patient reports that he has been having issues since his abdominoplasty 5 weeks ago. He went to Dr. Doyle's office today because he was feeling weaker. Dr. Doyle referred patient to ER and stated he may need to take patient to OR for washout. He states he has been having nausea and vomiting for 1.5 weeks, and he has been been taking his medication. He reports chills and low grade temperature. Patient denies chest pain. He reports weakness but he has not fallen due to his weakness. He has been having purulent drainage from his wound for at least 1 week. Related Data Home Medications Medication Instructions Recorded Confirmed acetaminophen 325 mg tablet 325 mg PO PRN PRN Pain 08/02/22 09/15/22 (Tylenol) apixaban 5 mg tablet (Eliquis) 5 mg PO BID 08/02/22 09/15/22 aspirin 81 mg tablet,delayed 81 mg PO DAILY 08/02/22 09/15/22 release (Adult Low Dose Aspirin) atorvastatin 40 mg tablet 40 mg PO DAILY 08/02/22 09/15/22 empagliflozin 10 mg tablet 10 mg PO DAILY 08/02/22 09/15/22 (Jardiance) furosemide 40 mg tablet 40 mg PO DAILY 08/02/22 09/15/22 indapamide 2.5 mg tablet 2.5 mg PO DAILY 08/02/22 09/15/22 insulin lispro 100 unit/mL 1 sliding scale dose subcut 08/02/22 09/15/22 subcutaneous solution (Humalog USEASDIRECTD U-100 Insulin) losartan 100 mg tablet 100 mg PO DAILY 08/02/22 09/15/22 nintedanib 100 mg capsule (Ofev) 100 mg PO BID 08/02/22 09/15/22 zolpidem 5 mg tablet 5 mg PO HS 08/02/22 09/15/22 Allergies Allergy/AdvReac Type Severity Reaction Status Date / Time ANTIHISTAMINES AdvReac Hypertensio Uncoded 09/15/22 19:24 n Review of Systems Constitutional: Constitutional: Reports chills, Reports fever(s) and Reports weakness Cardiovascular: Cardiovascular: Denies syncope, Denies rapid heart rate, Denies irregular heart rhythm, Denies leg edema and Denies dyspnea Respiratory: Respiratory: Denies chest congestion, Denies hemoptysis, Denies excessive phlegm production and Denies dyspnea Gastrointestinal: Gastrointestinal: Reports abdominal pain, Denies hematochezia, Denies diarrhea, Reports nausea and Reports vomiting Genitourinary: Genitourinary: Denies hematuria, Denies dysuria, Denies penile discharge and Denies testicular pain Musculoskeletal: Musculoskeletal: Denies joint swelling, Denies loss of height and Denies muscle weakness Integumentary/Breasts: Skin/Breast: Reports erythema Neurologic: Denies syncope, Denies focal weakness and Reports weakness PMFSH Past Medical History Medical History (Updated 09/15/22 @ 21:29 by Charo Wallace MD) Chronic kidney disease Chronic respiratory failure with hypoxia, on home oxygen therapy On oxygen at nighttime and with p.r.n. with exertion. Gastroesophageal reflux disease Hyperlipidemia Hypertension Insulin dependent diabetes mellitus Obesity Obstructive sleep apnea on CPAP Osteoarthritis Paroxysmal atrial fibrillation Pulmonary fibrosis Surgical History Surgical History (Updated 09/15/22 @ 20:44 by Carin Mcdaniel PA-C) History of abdominoplasty (08/11/22) History of bilateral knee arthroplasty History of cholecystectomy History of penile implant History of permanent cardiac pacemaker placement History of total replacement of both shoulder joints Family History Family History Other Cancer Social History Social History Social History: Surrogate medical decision maker: Isaac
[2022-09-15 13:51] LABS: Appearance Urine Cloudy (Clear); Bacteria Urine None Seen /hpf; Bilirubin Urine Negative (Negative); Blood Urine Trace (Negative); Color Urine Yellow (Yellow); Glucose Urine UA Trace mg/dL (Negative); Granular Casts Urine Present /lpf; Hyaline Casts Urine Present /lpf; Ketones Urine Trace mg/dL (Negative); Leukocyte Esterase Ur Negative LEU/UL (Negative); Nitrate Urine Negative (Negative); Protein Urine 2+ mg/dL (Negative); RBC Urine 0-2 /hpf (0-2); Specific Grav Ur 1.021 (1.001-1.035); Squamous Epithelial Cell Urine Occasional /hpf (Few); Urobilinogen Urine 0.2 mg/dL (<2.0); WBC Urine 0-5 /hpf
[2022-09-15 13:52] LABS: Add Urine Microscopic? YES
--- NOTE | 2022-09-15 15:00 | PM.IMHP ---
H&P: HPI History of Present Illness Date/Time: 09/15/22 15:00 Chief Complaint: Post op infection. Narrative: This is a 77-year-old male with history of chronic lung disease and insulin-dependent diabetes who presented to the emergency department via EMS from home for evaluation of a post-operative infection. Patient provides the following history. He is known to myself and the hospitalist service from a consultation last month for medical management following an elective abdominoplasty. According to the patient he has had issues with wound healing since the surgery and he is seeing Dr. Doyle on a weekly basis. He has been on 2 different antibiotics for postoperative wound infection and it has not improved. In fact it has gotten worse with increasing redness, dehiscence, and purulent drainage. For the last 1 week he has been running low-grade fevers and he is become increasingly more weak. His appetite is also poor and he has developed nausea, vomiting, and loose stools. He also endorses a nonproductive cough and mild shortness of breath. He has not been taking his insulin because he has not been eating much and he admits he has not checked his glucose either. He denies headache, neck ache, sinus congestion, sore throat, chest pain, pleuritic pain, and dysuria. Vital signs were stable on arrival to the ED but he spiked a temperature to 101.5? this evening. White blood cell count was normal at 8.7 but he had 27% bands on automated differential. BMP was significant for a sodium of 129, potassium 3.7, BUN 57, creatinine 2.10 (stable), glucose 177. CT of the abdomen and pelvis showed extensive ventral abdominal and pelvic wall fat stranding and infiltrate versus atelectasis of the lower lung zones. In the ED he was given a dose of imipenem and vancomycin and he is currently NPO as Dr. Doyle is likely to take him for washout this evening. Review of Systems Review of Systems: Twelve systems were reviewed and are negative except for as per HPI. [facility] Past Medical History Medical History (Updated 09/15/22 @ 20:48 by Carin Mcdaniel PA-C) Chronic kidney disease Chronic respiratory failure with hypoxia, on home oxygen therapy On oxygen at nighttime and with p.r.n. with exertion. Gastroesophageal reflux disease Hyperlipidemia Hypertension Insulin dependent diabetes mellitus Obesity Obstructive sleep apnea on CPAP Osteoarthritis Paroxysmal atrial fibrillation Pulmonary fibrosis Surgical History Surgical History (Updated 09/15/22 @ 20:44 by Carin Mcdaniel PA-C) History of abdominoplasty (08/11/22) History of bilateral knee arthroplasty History of cholecystectomy History of penile implant History of permanent cardiac pacemaker placement History of total replacement of both shoulder joints Family History Family History Other Cancer Social History Social History Social History: Surrogate medical decision maker: Wendy Cornelius, sibling. Code status: Full code. Smoking status: Never smoker Alcohol intake: never Drinks per week: 1 Substance use: never Substance use type: does not use Lack of Transportation: No Lack of Food: Never True Current Housing: I Have Housing Concerned About Future Housing: No Difficulty Paying Gas/Electric Bills: No Difficulty Paying for Meds: No Currently Unemployed: No Education: Master's Degree or Higher Difficulty w/ Childcare or Family Care: No Additional living arrangements comments: The patient lives in his own home in [place]. He is with 4 children. 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 Spiritual care concerns: No Meds Home Medications and Allergies Home Medications Medication Instructions Recorded Confirmed Type acetaminophen 325 mg tablet 325 mg PO PRN PRN Pain 08/02/22 09/15/22 H
[2022-09-15 15:04] LABS: Hemoglobin A1C 6.6 % (<5.7)
--- NOTE | 2022-09-15 15:54 | PC.NURSE ---
Patient to go to surgery tonight for a wash out of wound
--- NOTE | 2022-09-15 16:14 | ADMGEN ---
This patient, Brett Cornelius, was admitted to [facility] Surg Room 323-02. Patient/family oriented to hospital policies and general routines including ID bracelet, bed and alarms, visiting hours, pain management, procedures, bathroom and other care routines, personal items, smoking policy, room service/diet, and visiting hours. Information on how to activate the Rapid Response Team has been discussed. Patient/Family are encouraged to report perceived risks to care and to ask questions if they do not understand what they are told or what they should do.
[2022-09-15] MEDS: SODIUM CHLORIDE 0.9% IV 1,000 ML 125 ML IV CONT (16:23)
[2022-09-15 19:41] LABS: Glucose Point of Care 168 mg/dl (65-105)
--- NOTE | 2022-09-15 20:13 | WPDANESEPPF ---
Anes - Initial Pre Proc Eval Procedure: Operation Date: 09/15/22 19:45 Proposed Procedures p Incision and Debridement Abdominal Wound - Ken Doyle MD Date/Time: 09/15/22 20:13 Surgeon: Atif Bro MD Pre Op Diagnosis: postoperative abdominal incision infection,wound d Patient Data Age: 77 Gender: M Height: 1.75 m Weight: 89.7 kg Last Vital Signs Temp 38.6 C H 09/15/22 19:01 Pulse 63 09/15/22 19:01 Resp 18 09/15/22 19:01 BP 151/47 H 09/15/22 19:01 Pulse Ox 97 09/15/22 19:01 O2 Del Method Room Air 09/15/22 19:01 Allergies Allergy/AdvReac Type Severity Reaction Status Date / Time ANTIHISTAMINES AdvReac Hypertensio Uncoded 09/15/22 19:24 n Home Medications Medication Instructions Recorded Confirmed Type acetaminophen 325 mg tablet 325 mg PO PRN PRN Pain 08/02/22 09/15/22 History (Tylenol) apixaban 5 mg tablet (Eliquis) 5 mg PO BID 08/02/22 09/15/22 History aspirin 81 mg tablet,delayed 81 mg PO DAILY 08/02/22 09/15/22 History release (Adult Low Dose Aspirin) atorvastatin 40 mg tablet 40 mg PO DAILY 08/02/22 09/15/22 History empagliflozin 10 mg tablet 10 mg PO DAILY 08/02/22 09/15/22 History (Jardiance) furosemide 40 mg tablet 40 mg PO DAILY 08/02/22 09/15/22 History indapamide 2.5 mg tablet 2.5 mg PO DAILY 08/02/22 09/15/22 History insulin lispro 100 unit/mL 1 sliding scale dose subcut 08/02/22 09/15/22 History subcutaneous solution (Humalog USEASDIRECTD U-100 Insulin) losartan 100 mg tablet 100 mg PO DAILY 08/02/22 09/15/22 History nintedanib 100 mg capsule (Ofev) 100 mg PO BID 08/02/22 09/15/22 History zolpidem 5 mg tablet 5 mg PO HS 08/02/22 09/15/22 History Laboratory Tests 09/15/22 09/15/22 09/15/22 11:29 11:31 11:31 WBC RBC Hgb Hct MCV MCH MCHC RDW Plt Count MPV Immature Gran % (Auto) Neut % (Auto) Lymph % (Auto) [place] % (Auto) Eos % (Auto) Baso % (Auto) Lymph # (Auto) [place] # (Auto) Eos # (Auto) Baso # (Auto) Abs Immat Gran (auto) Absolute Neuts (auto) Absolute Nucleated RBC Total Counted Neutrophils % (Manual) Band Neutrophils % Lymphocytes % (Manual) Monocytes % (Manual) Nucleated RBC % Abs Neuts (Manual) Abs Lymphs (Manual) Abs Monocytes (Manual) Platelet Estimate Schistocytes PT INR APTT Puncture Site ABG pH ABG pCO2 ABG pO2 ABG PO2/FiO2 Ratio ABG HCO3 ABG O2 Saturation ABG O2 Content ABG Base Excess A-a Gradient Oxyhemoglobin Carboxyhemoglobin Methemoglobin Reduced Hemoglobin Total Hemoglobin O2 Delivery Device O2 Liters/Min FiO2 Sodium Potassium Chloride Carbon Dioxide Anion Gap BUN Creatinine Estim Creat Clear Calc Estimated GFR Glucose POC Capillary Glucose 178 mg/dl H mg/dl (65-105) Hemoglobin A1c Lactic Acid Calcium Magnesium 1.7 mg/dL mg/dL (1.6-2.3) Total Bilirubin AST ALT Alkaline Phosphatase C-Reactive Protein Total Protein Albumin Beta-Hydroxybutyrate/Acetoacetate 1.01 mmol/L H mmol/L (0.02-0.27) Urine Color Urine Appearance Urine pH
--- NOTE | 2022-09-15 20:14 | WPDHPUPDATE1 ---
History and Physical Update Update Date/Time: 09/15/22 20:14 History and Physical has been reviewed, including an updated exam of the patient. There are NO changes in the patient's condition. Risks, benefits, and alternatives have been discussed and questions answered. Patient agrees to proceed with procedure.
[2022-09-15] MEDS: LACTATED RINGERS 1,000 ML 30 ML IV CONT (20:15)
[2022-09-15] MEDS: NACL 0.9% IRRIG POUR BOTTLE 900 ML, GENTAMICIN SULFATE INJ 160 MG, ceFAZolin 2 GM, POVI... IRRIGATION (21:11)
[2022-09-15] MEDS: BUPivacaine HCL 0.25% PF 30 ML VIAL 50 ML INFILTRATE (21:22)
--- NOTE | 2022-09-15 21:34 | P.OP_ITS ---
Procedure Note - Detailed Date of Procedure 09/15/22 Pre-op Diagnosis postoperative abdominal incision infection Post-op Diagnosis Same Procedure Performed Washout (I&D) abdomen Surgeon Ken Doyle MD Anesthesia General Indications He comes in today after abdominoplasty. Postoperatively he had some erythema and felt fatigued, with antibiotics he improved. Four weeks postoperatively (09/06/2022) he was doing very well and making significant improvement. He was healing as expected. He states approximately 24 hours after seeing us began having drainage and started feeling ill. He states he never contacted us or his PCP. He also states that he stopped taking all of his medications last week that he should take daily. He presented to our clinic today feeling ill with drainage. He had evidence of some purulence from his incision with an anaerobic filling technician smell. We had him proceed to the ER with planned evaluation and proceed this evening with washout of the abdomen. Preoperatively risks, benefits, alternatives were discussed. All questions answered. He voiced a clear understanding. Consent obtained. Findings Abdominal purulence identified. Cultures taken. Anaerobic odor. Penile prosthesis - No evidence of exposure / good granulation coverage. Progressive tension sutures as well as diastasis repair sutures were no longer intact. Description of Procedure He was taken to the operating room placed supine on operating table. Anesthesia provided by anesthesiology. He was prepped and draped in a standard sterile fashion. Surgical time-out was taken. The incision was infiltrated with 1% lidocaine and 0.25% Marcaine with epinephrine. I excised the upper and lower incisional border which was poorly adherent. Part of his umbilicus had already opened. I trimmed any nonviable tissue (minimal) I elevated the entire abdominal flap as previously elevated which was easily completed as it was clear the progressive tension sutures were no longer intact. Cultures were taken I first irrigated with 3 L of saline solution on TUR tubing. I then irrigated with a dilute peroxide solution. Finally we irrigated with Betadine solution making sure we had thoroughly irrigated the entire abdomen. Bilateral 15 Luciano drains were placed in these were sutured at the end of the incision with 3-0 nylon. I repaired around the umbilicus with 4-0 nylon. For the lower abdominal incision I was able to reapproximate this with no tension using horizontal mattress 3-0 nylon. Dressings were placed. He has woken taken to the PACU without difficulty. All instrument sponge counts were at the end of the case. Estimated Blood Loss 10 Urine Output 10 Drains Yes (Bilateral abdominal luciano) Packing No Pathology Yes (Abdominal cultures) Complications No immediate complications Condition Stable Disposition PACU
[2022-09-15] MEDS: SODIUM CHLORIDE 0.9% IV 500 ML 30 ML IV CONT (21:40)
[2022-09-15] MEDS: fentaNYL CITRATE INJ (*CRX) 100 MCG/2 ML VIAL 25 MCG IV PUSH ×8 (21:55→22:49)
--- NOTE | 2022-09-15 21:59 | SUR.PHASEI ---
2155: John LAMB at bedside re-dressing patient's surgical (abdominal) wound.
[2022-09-15 22:08] LABS: Glucose Point of Care 168 mg/dl (65-105)
--- NOTE | 2022-09-15 22:50 | PC.NURSE ---
Pt arrived via bed from PACU, abd dressing dry and intact, x2 abd TONO drains compressed, vitals obtained and WNL. Denies pain at this time.
[2022-09-16] MEDS: APIXABAN 5 MG TABLET PO ×3 (00:14→20:32)
[2022-09-16 01:06] LABS: Glucose Point of Care 164 mg/dl (65-105)
[2022-09-16 03:23] VITALS: BP 140/51; PULSE 60; RESP 16; TEMP 36.7; O2SAT 97
[2022-09-16] MEDS: traMADol HCL (*CRX) 50 MG TABLET PO ×2 (05:11→20:24)
[2022-09-16] MEDS: HYDROmorphone HCL INJ (*CRX) 1 MG/ML SYR IV PUSH (06:08)
[2022-09-16] MEDS: SODIUM CHLORIDE 0.9% IV 1,000 ML 100 ML IV CONT ×2 (06:08→17:32)
[2022-09-16 06:27] VITALS: BP 103/56; PULSE 78; RESP 16; TEMP 36.9; O2SAT 98
[2022-09-16 06:27] LABS: Hematocrit 26.8 % (42.0-52.0); Hemoglobin 8.8 g/dL (14.0-18.0); Mean Corpuscular HGB Conc 32.8 g/dl (32-36); Mean Corpuscular Hemoglobin 31.1 pg (26-34); Mean Corpuscular Volume 94.7 fl (80-100); Mean Platelet Volume 8.8 fl (7.4-10.4); Platelet Count Result 211 k/mm3 (150-375); Red Blood Count 2.83 M/mm3 (4.6-6.20); White Blood Count 7.2 K/mm3 (4.5-10.0)
[2022-09-16 06:45] LABS: Prealbumin 6.1 mg/dL (17.6-36.0)
[2022-09-16 06:53] LABS: Alanine Aminotransferase 42 U/L (6-50); Albumin Level 2.5 g/dL (3.5-5.1); Alkaline Phosphatase 143 U/L (38-126); Anion Gap 4 mmol/L (8-16); Aspartate Amino Transferase 37 U/L (17-59); Bilirubin,Total 0.4 mg/dL (0.2-1.3); Blood Urea Nitrogen 42 mg/dL (9-20); Calcium 7.6 mg/dL (8.4-10.2); Carbon Dioxide 21 mmol/L (22-30); Chloride 107 mmol/L (98-107); Estimated CRCL calculation 33 ml/min; Estimated Glomerular Filt Rate 39; Glucose 133 mg/dL (65-110); Magnesium 1.6 mg/dL (1.6-2.3); Potassium 3.6 mmol/L (3.4-5.0); Sodium 132 mmol/L (137-145)
--- NOTE | 2022-09-16 07:10 | WPDPN ---
Progress Note: A&P Assessment and Plan (1) Postoperative wound infection: Code(s): T81.49XA - Infection following a procedure, other surgical site, initial encounter Status: Acute Assessment and Plan: Doing well (much improved) after abdominoplasty and subsequent washout. Patient needs additional social support after discharge (facility versus family). Patient has been unwilling to accept assitance and does not reach out with concerns that escalate; however, he understands now he is struggling to care for himself and needs assistance and is (for the first time) open to outside assistance. Any assistance discussing / providing him options for this is appreciated. Needs to optimize nutrition. He (and his sister) state he has not been eating well for some time. Appreciate hospitalist assistance / abx management Today we had a lengthy discussion about his care. I explained I am worried about his ability to care for himself as he has shown poor nutrition, has not been compliant with his overall health, and does not reach out for assistance when issues arise. He is open to this discussion for the first time today and recognizes the concerns. Will continue to discuss and work on social arrangements. (2) Skin laxity: Code(s): L57.4 - Cutis laxa senilis Status: Acute Subjective Date/time seen: 09/16/22 07:10 Interval history: He is s/p abdominoplasty on 08/11/2022.? Postoperatively he had some erythema and felt fatigued, with antibiotics he improved.? Four weeks postoperatively (09/06/2022) he was doing very well and making significant improvement.? He was healing as expected.? He states around 09/07-09/08 (approximately 24 hours after seeing us) he began having drainage and started feeling ill.? He states he never contacted us or his PCP.? He also states that he stopped taking all of his medications around 09/07 - 09/08 last week that he should take daily. He presented to office with drainage. We returned to the OR 09/15/2022 evening for washout. Purulence identified. Cultures taken. Drains placed. Today he states he is feeling much better. No fever / chills. No nausea / vomitting. Review of Systems Review of Systems: All systems reviewed & are unremarkable except as noted in HPI and below Exam Narrative: Alert & Oriented NOD Respiratory unlabored Abdomen with good color / cap refill. No purulence. No fluctuance. No hematoma. No seroma. Drains in place. No calf tenderness. Negative Truong's Objective Data Vital Signs Vital Signs: Vital Signs - 24 hr 09/15/22 11:21 09/15/22 11:24 09/15/22 11:26 Temperature 36.8 C Pulse Rate 84 82 81 Respiratory Rate 13 13 29 H Blood Pressure 144/66 H Pulse Oximetry 96 96 95 Oxygen Delivery Room Air Oxygen Flow Rate 09/15/22 11:32 09/15/22 12:19 09/15/22 12:21 Temperature Pulse Rate 76 61 62 Respiratory Rate 21 H 15 18 Blood Pressure 122/63 149/58 H Pulse Oximetry 96 100 99 Oxygen Delivery Oxygen Flow Rate 09/15/22 14:16 09/15/22 14:17 09/15/22 16:15 Temperature 37.0 C Pulse Rate 77 62 59 L Respiratory Rate 25 H 25 H 20 Blood Pressure 141/53 H 153/48 H Pulse Oximetry 93 98 98 Oxygen Delivery Oxygen Flow Rate 09/15/22 17:21 09/15/22 19:01 09/15/22 21:35 Temperature 38.6 C H 37.2 C Pulse Rate 63 81 Respiratory Rate 18 21 H Blood Pressure 151/47 H 148/57 H Pulse Oximetry 97 100 Oxygen Delivery Room Air Room Air Simple Face Mask Oxygen Flow Rate 8 09/15/22 21:45 09/15/22 22:00 09/15/22 22:15 Temperature Pulse Rate 75 70 65 Respiratory Rate 20 20 16 Blood Pressure 131/55 L 131/54 L 133/49 L Pulse Oximetry 98 98 96 Oxygen Delivery Simple Face Mask Room Air Room Air Oxygen Flow Rate 8 09/15/22 22:30 09/15/22 23:10 09/15/22 23:23 Temperature 36.7 C 36.7 C Pulse Rate 64 61 78 Respiratory Rate 19 16 16 Blood Pressure 139/49 L 144/46 H 129/66 Pulse Oximetry 96 97 96 Oxygen De
[2022-09-16 08:08] LABS: Band Neutrophils Percent 6 % (0-6); Monocytes Absolute Manual 0.86 K/mm3 (0.1-0.90); Monocytes Percent Manual 12 % (3-9); Neutrophils Absolute Manual 5.83 K/mm3 (1.3-6.7); Neutrophils Percent Manual 75 % (46-73); Total Cells Counted 100
[2022-09-16 08:09] LABS: Platelet Estimate Adequate (Adequate); Schistocytes None Seen (NORMAL)
[2022-09-16] MEDS: ATORVASTATIN 40 MG TABLET PO (08:17)
[2022-09-16] MEDS: INDAPAMIDE 2.5 MG TABLET PO (08:17)
[2022-09-16] MEDS: FUROSEMIDE 40 MG TABLET PO (08:17)
[2022-09-16] MEDS: ASPIRIN 81 MG ENTERIC TABLET PO (08:17)
[2022-09-16] MEDS: EMPAGLIFLOZIN 10 MG TABLET PO (08:17)
--- NOTE | 2022-09-16 09:06 | WPDANESPN ---
Anes - Prog Note Post-Op Date/Time: 09/16/22 09:06 Cardiovascular status: normal Respiratory status: normal Airway patency: baseline Mental status: baseline Post-Op hydration status: normal Vital Signs: Last Vital Signs Temp 98.4 F 09/16/22 06:27 Pulse 78 09/16/22 06:27 Resp 16 09/16/22 06:27 BP 103/56 L 09/16/22 06:27 Pulse Ox 98 09/16/22 06:27 O2 Del Method Room Air 09/16/22 01:25 O2 Flow Rate 8 09/15/22 21:45 Pain Score (VAS): 0/10 I/O: Intake & Output 09/15/22 09/16/22 09/16/22 23:59 07:59 15:59 Intake Total 100 1500 Output Total 38 615 Balance 62 885 Laboratory Tests 09/16/22 06:00 09/16/22 06:00 09/15/22 09/15/22 09/15/22 11:29 11:31 11:31 WBC RBC Hgb Hct MCV MCH MCHC RDW Plt Count MPV Immature Gran % (Auto) Neut % (Auto) Lymph % (Auto) [place] % (Auto) Eos % (Auto) Baso % (Auto) Lymph # (Auto) [place] # (Auto) Eos # (Auto) Baso # (Auto) Abs Immat Gran (auto) Absolute Neuts (auto) Absolute Nucleated RBC Total Counted Neutrophils % (Manual) Band Neutrophils % Lymphocytes % (Manual) Monocytes % (Manual) Nucleated RBC % Abs Neuts (Manual) Abs Lymphs (Manual) Abs Monocytes (Manual) Platelet Estimate Schistocytes PT INR APTT Puncture Site ABG pH ABG pCO2 ABG pO2 ABG PO2/FiO2 Ratio ABG HCO3 ABG O2 Saturation ABG O2 Content ABG Base Excess A-a Gradient Oxyhemoglobin Carboxyhemoglobin Methemoglobin Reduced Hemoglobin Total Hemoglobin O2 Delivery Device O2 Liters/Min FiO2 Sodium Potassium Chloride Carbon Dioxide Anion Gap BUN Creatinine Estim Creat Clear Calc Estimated GFR Glucose POC Capillary Glucose 178 H Hemoglobin A1c Lactic Acid Calcium Magnesium 1.7 Total Bilirubin AST ALT Alkaline Phosphatase C-Reactive Protein Total Protein Albumin Prealbumin Beta-Hydroxybutyrate/Acetoacetate 1.01 H Urine Color Urine Appearance Urine pH Ur Specific [place] Urine Protein Urine Glucose (UA) Urine Ketones Ur Blood (Man) Urine Nitrate Urine Bilirubin Urine Urobilinogen Leukocyte Esterase Rfl Urine RBC Urine WBC Ur Squamous Epith Cells Urine Bacteria Urine Casts Hyaline Casts Granular Casts Ur L.pneumophila Ag Mycoplasma pneumon IgM Urine Pneumococcal Ag 09/15/22 09/15/22 09/15/22 11:31 11:31 11:31 WBC 8.7 RBC 3.53 L Hgb 11.0 L Hct 33.1 L MCV 93.8 MCH 31.2 MCHC 33.2 RDW 13.9 Plt Count 269 MPV 8.9 Immature Gran % (Auto) Not Reportable Neut % (Auto) Not Reportable Lymph % (Auto) Not Reportable [place] % (Auto) Not Reportable Eos % (Auto) Not Reportable Baso % (Auto) Not Reportable Lymph # (Auto) Not Reportable [place] # (Auto) Not Reportable Eos # (Auto) Not Reportable Baso # (Auto) Not Reportable Abs Immat Gran (auto) Not Reportable Absolute Neuts (auto) Not Reportable Absolute Nucleated RBC Not Reportable Total Counted 100 Neutrophils % (Manual) 46 Band Neutrophils % 27 H Lymphocytes % (Manual) 15.0 L Monocytes % (Manual) 12 H Nucleated RBC % Not Reportable Abs Neuts (Manual) 6.35 Abs Lymphs (Manual) 1.30 Abs Monocytes (Manual) 1.04 H Platelet Estimate Adequate Schistocytes None seen PT 14.9 H INR 1.2 APTT 34.1 Puncture Site ABG pH ABG pCO2 ABG pO2 ABG PO2/FiO2 Ratio ABG HCO3 ABG O2 Saturation ABG O2 Content ABG Base Excess A-a Gradient Oxyhemoglobin Carboxyhemoglobin Methemoglobin Reduced Hemoglobin Total Hemoglobin O2 Delivery Device O2 Liters/Min FiO2 Sodium 129 L Potassium 3.7 Chloride 98 Carbon Dioxide 21 L Anion Gap 10
--- NOTE | 2022-09-16 11:02 | PM.IMPN ---
Progress Note: A&P Assessment and Plan (1) Sepsis: Code(s): A41.9 - Sepsis, unspecified organism Status: Acute Assessment and Plan: Patient has a fever and bandemia in the setting of infection. Lactic acid level is normal. Blood pressures have been stable thus far. Blood and wound cultures have been ordered and are pending. Continue broad-spectrum antibiotics and monitor closely. (2) Postoperative wound infection: Code(s): T81.49XA - Infection following a procedure, other surgical site, initial encounter Status: Acute Assessment and Plan: Status post abdominoplasty a little over 1 month ago. He has been on 2 different antibiotics though the infection continues to worsen unfortunately. Continue imipenem and vancomycin. Wound culture has been ordered and is pending. Patient is to go for incision and drainage with wound washout per Dr. Doyle this evening. (3) Insulin dependent diabetes mellitus: Status: Chronic Assessment and Plan: He has not been wearing his insulin pump for well over a week due to poor oral intake. He admits he has not been checking his glucose. Random glucose today was 166. Initiate sliding scale insulin for now. (4) Abnormal CT scan, lung: Code(s): R91.8 - Other nonspecific abnormal finding of lung field Status: Acute Assessment and Plan: Patchy bilateral lower lobe infiltrates were noted on CT of the abdomen and pelvis. He does have lung disease in this may be a chronic finding however he has been short of breath and coughing. Continue imipenem as above. Sputum culture ordered. (5) Chronic kidney disease: Code(s): N18.9 - Chronic kidney disease, unspecified Status: Acute Assessment and Plan: Stable on review of previous labs. (6) Hypertension: Code(s): I10 - Essential (primary) hypertension Status: Acute Assessment and Plan: Blood pressures were reviewed and they are stable. Antihypertensives will be reviewed and resumed as appropriate. (7) Chronic respiratory failure with hypoxia, on home oxygen therapy: Code(s): J96.11 - Chronic respiratory failure with hypoxia; Z99.81 - Dependence on supplemental oxygen Status: Acute Assessment and Plan: He is on 4 L at night with CPAP and p.r.n. throughout the day. (8) Paroxysmal atrial fibrillation: Code(s): I48.0 - Paroxysmal atrial fibrillation Status: Acute Assessment and Plan: In a sinus rhythm at this time. Eliquis on hold as he is going to the OR tonight. (9) Obstructive sleep apnea on CPAP: Code(s): G47.33 - Obstructive sleep apnea (adult) (pediatric); Z99.89 - Dependence on other enabling machines and devices Status: Acute Assessment and Plan: CPAP will be provided for the patient to use while hospitalized. Subjective Date/time seen: 09/16/22 11:02 No new complaints. Exam Narrative: General:?Moderately ill-appearing male in the semi-Borrero position in bed. Weight: 89.7 kg. BMI: 29.2. HEENT:??Normocephalic, atraumatic.? PERRL, EOMI. Dry mucous membranes. Neck:??Supple. Respiratory:?Respirations are nonlabored. Coarse lung sounds at the bases. Cardiovascular:??Regular rate and rhythm with S1-S2. Gastrointestinal:??Abdomen is nondistended with positive bowel sounds. Low abdominal incision from hip to hip show several areas of dehiscence with a few unstageable eschars, erythema and edema, and some open areas with thick purulent drainage. Skin:?Cool at and dry. Extremities:??No cyanosis, clubbing, or edema. Radial and pedal pulses intact. Neurological:??Alert.? Cranial nerves 2-12 are grossly intact. No gross focal deficits to casual conversation. Psychiatric:??Pleasant and cooperative. Appropriate mood and affect. Objective Data Vital Signs Vital Signs: Vital Signs - 24 hr 09/15/22 11:21 09/15/22 11:24 09/15/22 11:26 Temperature 98.2 F Pulse Rate 84 82
[2022-09-16 12:36] LABS: Glucose Point of Care 198 mg/dl (65-105)
[2022-09-16 13:18] VITALS: BMI 29.2
[2022-09-16 14:00] VITALS: BP 128/44; PULSE 61; RESP 18; TEMP 36.8; O2SAT 97
[2022-09-16 16:27] LABS: Glucose Point of Care 192 mg/dl (65-105)
[2022-09-16 20:10] VITALS: BP 154/54; PULSE 58; RESP 18; TEMP 36.3; O2SAT 97
[2022-09-16 20:47] LABS: Glucose Point of Care 236 mg/dl (65-105)
[2022-09-17 00:59] VITALS: BP 155/52; PULSE 73; RESP 96; TEMP 35.8; O2SAT 20
[2022-09-17] MEDS: SODIUM CHLORIDE 0.9% IV 1,000 ML 100 ML IV CONT ×3 (03:39→23:36)
[2022-09-17 04:42] VITALS: BP 175/62; PULSE 60; RESP 22; TEMP 36.2; O2SAT 96
[2022-09-17 07:26] LABS: Estimated CRCL calculation 36 ml/min; Estimated Glomerular Filt Rate 37
[2022-09-17 07:50] LABS: Glucose Point of Care 158 mg/dl (65-105)
[2022-09-17 08:08] LABS: Glucose Point of Care 158 mg/dl (65-105)
[2022-09-17] MEDS: EMPAGLIFLOZIN 10 MG TABLET PO (08:20)
[2022-09-17] MEDS: INDAPAMIDE 2.5 MG TABLET PO (08:20)
[2022-09-17] MEDS: APIXABAN 5 MG TABLET PO ×2 (08:20→20:32)
[2022-09-17] MEDS: ASPIRIN 81 MG ENTERIC TABLET PO (08:20)
[2022-09-17] MEDS: ATORVASTATIN 40 MG TABLET PO (08:20)
[2022-09-17] MEDS: FUROSEMIDE 40 MG TABLET PO (08:20)
[2022-09-17 08:21] LABS: Hematocrit 28.7 % (42.0-52.0); Hemoglobin 8.4 g/dL (14.0-18.0); Mean Corpuscular HGB Conc 29.3 g/dl (32-36); Mean Corpuscular Hemoglobin 31.1 pg (26-34); Mean Corpuscular Volume 106.3 fl (80-100); Mean Platelet Volume 8.8 fl (7.4-10.4); Platelet Count Result 215 k/mm3 (150-375); Red Cell Distribution Width 14.3 % (11.5-14.5); White Blood Count 6.2 K/mm3 (4.5-10.0)
[2022-09-17 08:26] LABS: Anion Gap 8 mmol/L (8-16); Blood Urea Nitrogen 39 mg/dL (9-20); Calcium 7.3 mg/dL (8.4-10.2); Carbon Dioxide 17 mmol/L (22-30); Chloride 107 mmol/L (98-107); Estimated CRCL calculation 36 ml/min; Estimated Glomerular Filt Rate 37; Glucose 158 mg/dL (65-110); Potassium 3.5 mmol/L (3.4-5.0); Sodium 132 mmol/L (137-145)
[2022-09-17 08:50] LABS: Band Neutrophils Percent 31 % (0-6); Eosinophils Absolute Manual 0.12 K/mm3 (0.02-0.5); Eosinophils Percent Manual 2 % (0-4); Monocytes Absolute Manual 0.06 K/mm3 (0.1-0.90); Monocytes Percent Manual 1 % (3-9); Myelocytes Percent 1 %; Neutrophils Absolute Manual 5.14 K/mm3 (1.3-6.7); Neutrophils Percent Manual 52 % (46-73); Total Cells Counted 100
[2022-09-17 08:58] LABS: Platelet Estimate Adequate (Adequate); Schistocytes None Seen (NORMAL)
[2022-09-17 11:28] LABS: Glucose Point of Care 184 mg/dl (65-105)
[2022-09-17 11:31] VITALS: BP 122/67; PULSE 69; RESP 20; TEMP 36.6; O2SAT 98
--- NOTE | 2022-09-17 12:41 | PM.IMPN ---
Progress Note: A&P Assessment and Plan (1) Sepsis: Code(s): A41.9 - Sepsis, unspecified organism Status: Acute Assessment and Plan: Improved, continue antibiotics. (2) Postoperative wound infection: Code(s): T81.49XA - Infection following a procedure, other surgical site, initial encounter Status: Acute Assessment and Plan: Continue IV antibiotics. (3) Insulin dependent diabetes mellitus: Status: Chronic Assessment and Plan: Blood sugars are okay. (4) Abnormal CT scan, lung: Code(s): R91.8 - Other nonspecific abnormal finding of lung field Status: Acute Assessment and Plan: Patchy bilateral lower lobe infiltrates were noted on CT of the abdomen and pelvis. He does have lung disease in this may be a chronic finding however he has been short of breath and coughing. Continue imipenem as above. Sputum culture ordered. Continue antibiotics. (5) Chronic kidney disease: Code(s): N18.9 - Chronic kidney disease, unspecified Status: Acute Assessment and Plan: Stable on review of previous labs. (6) Hypertension: Code(s): I10 - Essential (primary) hypertension Status: Acute Assessment and Plan: Creatinine is at baseline (7) Chronic respiratory failure with hypoxia, on home oxygen therapy: Code(s): J96.11 - Chronic respiratory failure with hypoxia; Z99.81 - Dependence on supplemental oxygen Status: Acute Assessment and Plan: Stable, monitor (8) Paroxysmal atrial fibrillation: Code(s): I48.0 - Paroxysmal atrial fibrillation Status: Acute Assessment and Plan: In a sinus rhythm at this time. Eliquis on hold as he is going to the OR tonight. (9) Obstructive sleep apnea on CPAP: Code(s): G47.33 - Obstructive sleep apnea (adult) (pediatric); Z99.89 - Dependence on other enabling machines and devices Status: Acute Assessment and Plan: CPAP will be provided for the patient to use while hospitalized. Subjective Date/time seen: 09/17/22 12:41 No new complaints Exam Narrative: General:?Moderately ill-appearing male in the semi-Borrero position in bed. Weight: 89.7 kg. BMI: 29.2. HEENT:??Normocephalic, atraumatic.? PERRL, EOMI. Dry mucous membranes. Neck:??Supple. Respiratory:?Respirations are nonlabored. Coarse lung sounds at the bases. Cardiovascular:??Regular rate and rhythm with S1-S2. Gastrointestinal:??Abdomen is nondistended with positive bowel sounds. Low abdominal incision from hip to hip show several areas of dehiscence with a few unstageable eschars, erythema and edema, and some open areas with thick purulent drainage. Skin:?Cool at and dry. Extremities:??No cyanosis, clubbing, or edema. Radial and pedal pulses intact. Neurological:??Alert.? Cranial nerves 2-12 are grossly intact. No gross focal deficits to casual conversation. Psychiatric:??Pleasant and cooperative. Appropriate mood and affect. Objective Data Vital Signs Vital Signs: Vital Signs - 24 hr 09/16/22 14:00 09/16/22 20:10 09/16/22 20:00 Temperature 98.2 F 97.3 F L Pulse Rate 61 58 L Respiratory Rate 18 18 Blood Pressure 128/44 L 154/54 H Pulse Oximetry 97 97 Oxygen Delivery Room Air 09/17/22 00:59 09/17/22 04:42 09/17/22 10:21 Temperature 96.5 F L 97.1 F L Pulse Rate 73 60 Respiratory Rate 96 H 22 H Blood Pressure 155/52 H 175/62 H Pulse Oximetry 20 L 96 Oxygen Delivery Room Air 09/17/22 08:20 09/17/22 11:31 Temperature 97.9 F Pulse Rate 69 Respiratory Rate 20 Blood Pressure 122/67 Pulse Oximetry 98 Oxygen Delivery Room Air Intake/Output Intake/Output: Intake & Output 09/14/22 09/15/22 09/16/22 09/17/22 23:59 23:59 23:59 23:59 Intake Total 1850 3610 3280 Output Total 38 1045 1955 Balance 1812 8855 1325 Meds/Results Medications: Active Medications Generic Name Dose Route Start Last Admin Trade
--- NOTE | 2022-09-17 13:45 | WPDPN ---
Progress Note: A&P Assessment and Plan (1) Postoperative wound infection: Code(s): T81.49XA - Infection following a procedure, other surgical site, initial encounter Status: Acute Assessment and Plan: Doing well (much improved) after abdominoplasty and subsequent washout. Social support. He is now getting more support from sister and [id number] and is amenable to a short term care facility to help him through recover. Appreciate nutrition assistance to optimize nutrition. Continue to encourage PO intake. Appreciate hospitalist assistance / abx management Will discharge when arrangements made / per hospitalist recommendations. (2) Skin laxity: Code(s): L57.4 - Cutis laxa senilis Status: Acute Subjective Date/time seen: 09/17/22 13:45 Interval history: He is s/p abdominoplasty on 08/11/2022.? Postoperatively he had some erythema and felt fatigued, with antibiotics he improved.? Four weeks postoperatively (09/06/2022) he was doing very well and making significant improvement.? He was healing as expected.? He states around 09/07-09/08 (approximately 24 hours after seeing us) he began having drainage and started feeling ill.? He states he never contacted us or his PCP.? He also states that he stopped taking all of his medications around 09/07 - 09/08 last week that he should take daily. He presented to office with drainage. We returned to the OR 09/15/2022 evening for washout. Purulence identified. Cultures taken. Drains placed. Again today he states he is feeling much better. No fever / chills. No nausea / vomiting. He is accompanied by his [id number] today and he states that he realizes he needs assistance and is open to a care facility for a period of time even if he has to pay for this. Last year he lost his and believes he lost some of his will through this process. He now has much more family support and doing well. Review of Systems Review of Systems: All systems reviewed & are unremarkable except as noted in HPI and below Exam Narrative: Alert & Oriented NOD Respiratory unlabored Abdomen with good color / cap refill. No purulence. No fluctuance. No hematoma. No seroma. Drains in place which are clearing. No calf tenderness. Negative Truong's Objective Data Vital Signs Vital Signs: Vital Signs - 24 hr 09/16/22 14:00 09/16/22 20:10 09/16/22 20:00 Temperature 36.8 C 36.3 C L Pulse Rate 61 58 L Respiratory Rate 18 18 Blood Pressure 128/44 L 154/54 H Pulse Oximetry 97 97 Oxygen Delivery Room Air 09/17/22 00:59 09/17/22 04:42 09/17/22 10:21 Temperature 35.8 C L 36.2 C L Pulse Rate 73 60 Respiratory Rate 96 H 22 H Blood Pressure 155/52 H 175/62 H Pulse Oximetry 20 L 96 Oxygen Delivery Room Air 09/17/22 08:20 09/17/22 11:31 Temperature 36.6 C Pulse Rate 69 Respiratory Rate 20 Blood Pressure 122/67 Pulse Oximetry 98 Oxygen Delivery Room Air Intake/Output Intake/Output: Intake & Output 09/14/22 09/15/22 09/16/22 09/17/22 23:59 23:59 23:59 23:59 Intake Total 1850 3610 3280 Output Total 38 1045 1955 Balance 1812 2565 1325 Meds/Results Medications: Active Medications Generic Name Dose Route Start Last Admin Trade Name Freq PRN Reason Stop Dose Admin Acetaminophen 325 mg 09/16/22 04:05 Acetaminophen 325 Mg Tablet PO Q4H PRN Mild Pain (1-3) or Headache Apixaban 5 mg 09/15/22 23:00 09/17/22 08:20 Apixaban 5 Mg Tablet PO 5 mg Q12HR YULIA Administration Aspirin 81 mg 09/16/22 09:00 09/17/22 08:20 Aspirin 81 Mg Enteric Tablet PO 81 mg DAILY YULIA Administration Atorvastatin Calcium 40 mg 09/16/22 09:00 09/17/22 08:20 Atorvastatin 40 Mg Tablet PO 40 mg DAILY YULIA Administration Dextrose 12.5 gm 09/15/22 20:57 Dextrose 50% 25 Gm/50 Ml Syringe IV PUSH PRN PRN Hypoglycemia Protocol Empagliflozin 10 mg 09/16/22 09:00 09/17/22 08:20 Empaglifloz
[2022-09-17 14:12] VITALS: BP 121/80; PULSE 70; RESP 16; TEMP 36.5; O2SAT 97
--- NOTE | 2022-09-17 14:14 | IDPHARM ---
Subjective Pharmacy was consuted by Lorena Bro regarding infectious diseases for Brett Cornelius. Brett Cornelius is a 77 year old M with concerns regarding a wound infection / potential surgical site with infection. Background The patient is currently receiving Imipenem and Vancomycin. The patient's PMH includes Recent abdominoplasty on 08/11/22. Additionally, patient presented without leukocytosis and initial fever has resolved. Patient presented with drainage that has undergone washout on 09/15/22 and cultures from then show Granulicatella adiacens. Blood cultures from 09/15 are NGTD and 09/15 MRSA nasopharynx swab is negative. During evaluation by surgery team was noted that patient has having an odor from the infected wound that resembled potential anaerobic etiology. Assessment/Recommendation/Discussion Discussed with consulting provider and noted that consult was to ensure current therapy is covering the isolated pathogen and informed them that both agents are likely to cover this granulicatella. NOted that while granulicatella is a facultative anaerobe this may not be the sole source of the odor noted by the surgery team. Current therapy is appropriate, perhaps oral therapy can be Amoxicillin/clavulanic acid +/- metronidazole as it seems MRSA is not of current concern/isolation. Will sign off at this time. Thank you for the interesting consult. Ayush Deal, JessicaD Infectious Disease/Antimicrobial Stewardship Pharmacist 09/17/22; [id number]
[2022-09-17] MEDS: traMADol HCL (*CRX) 50 MG TABLET PO (15:34)
[2022-09-17 17:03] LABS: Glucose Point of Care 197 mg/dl (65-105)
[2022-09-17 19:00] VITALS: BP 168/60; PULSE 60; RESP 20; TEMP 36.4; O2SAT 98
[2022-09-17 21:08] LABS: Glucose Point of Care 227 mg/dl (65-105)
[2022-09-17 23:00] VITALS: BP 180/60; PULSE 60; RESP 20; TEMP 36.6; O2SAT 97
[2022-09-18 03:00] VITALS: BP 153/59; PULSE 60; RESP 14; TEMP 36.7; O2SAT 93
[2022-09-18] MEDS: ACETAMINOPHEN 325 MG TABLET PO (05:23)
--- NOTE | 2022-09-18 07:00 | WPDPN ---
Progress Note: A&P Assessment and Plan (1) Postoperative wound infection: Code(s): T81.49XA - Infection following a procedure, other surgical site, initial encounter Status: Acute Assessment and Plan: Doing well after abdominoplasty and subsequent washout. Social support. He is now getting more support from sister and [id number] and is amenable to a short term care facility to help him through recovery. Abdominal binder / dry dressing to abdomen daily. Appreciate nutrition assistance to optimize nutrition. Continue to encourage PO intake. He state he likes the shakes. Appreciate hospitalist assistance / abx management. Cultures noted. Will discharge when arrangements made / per hospitalist recommendations. Monitor H/H - No evidence of active bleeding. (2) Skin laxity: Code(s): L57.4 - Cutis laxa senilis Status: Acute Subjective Date/time seen: 09/18/22 07:00 Interval history: He is s/p abdominoplasty on 08/11/2022.? Postoperatively he had some erythema and felt fatigued, with antibiotics he improved.? Four weeks postoperatively (09/06/2022) he was doing very well and making significant improvement.? He was healing as expected.? He states around 09/07-09/08 (approximately 24 hours after seeing us) he began having drainage and started feeling ill.? He states he never contacted us or his PCP.? He also states that he stopped taking all of his medications around 09/07 - 09/08 last week that he should take daily. He presented to office with drainage. We returned to the OR 09/15/2022 evening for washout. Purulence identified. Cultures taken. Drains placed. Today he tells me that he wasn't wearing a binder at home, he would only wear it to appointments. he states he is feeling well. No fever / chills. No nausea / vomiting. No SoB. No CP. Review of Systems Review of Systems: All systems reviewed & are unremarkable except as noted in HPI and below Exam Narrative: Alert & Oriented NOD Respiratory unlabored Abdomen with good color / cap refill. No purulence. No fluctuance. No hematoma. No seroma. Drains in place and becoming serous. No calf tenderness. Negative Truong's Objective Data Vital Signs Vital Signs: Vital Signs - 24 hr 09/17/22 10:21 09/17/22 08:20 09/17/22 11:31 Temperature 36.6 C Pulse Rate 69 Respiratory Rate 20 Blood Pressure 122/67 Pulse Oximetry 98 Oxygen Delivery Room Air Room Air 09/17/22 14:12 09/17/22 19:00 09/17/22 20:45 Temperature 36.5 C 36.4 C Pulse Rate 70 60 Respiratory Rate 16 20 Blood Pressure 121/80 168/60 H Pulse Oximetry 97 98 Oxygen Delivery Room Air 09/17/22 23:00 09/18/22 03:00 Temperature 36.6 C 36.7 C Pulse Rate 60 60 Respiratory Rate 20 14 Blood Pressure 180/60 H 153/59 H Pulse Oximetry 97 93 Oxygen Delivery Intake/Output Intake/Output: Intake & Output 09/15/22 09/16/22 09/17/22 09/18/22 23:59 23:59 23:59 23:59 Intake Total 1850 3610 5370 600 Output Total 38 1045 4895 1250 Balance 1812 3783 373 -423 Meds/Results Medications: Active Medications Generic Name Dose Route Start Last Admin Trade Name Freq PRN Reason Stop Dose Admin Acetaminophen 325 mg 09/16/22 04:05 09/18/22 05:23 Acetaminophen 325 Mg Tablet PO 325 mg Q4H PRN Administration Mild Pain (1-3) or Headache Apixaban 5 mg 09/15/22 23:00 09/17/22 20:32 Apixaban 5 Mg Tablet PO 5 mg Q12HR YULIA Administration Aspirin 81 mg 09/16/22 09:00 09/17/22 08:20 Aspirin 81 Mg Enteric Tablet PO 81 mg DAILY YULIA Administration Atorvastatin Calcium 40 mg 09/16/22 09:00 09/17/22 08:20 Atorvastatin 40 Mg Tablet PO 40 mg DAILY YULIA Administration Dextrose 12.5 gm 09/15/22 20:57 Dextrose 50% 25 Gm/50 Ml Syringe IV PUSH PRN PRN Hypoglycemia Protocol Empagliflozin 10 mg 09/16/22 09:00 09/17/22 08:20 Empagliflozin 10 Mg Tablet PO 10 mg DAILY YULIA Administration Fur
[2022-09-18] MEDS: INDAPAMIDE 2.5 MG TABLET PO (08:08)
[2022-09-18] MEDS: ATORVASTATIN 40 MG TABLET PO (08:08)
[2022-09-18] MEDS: EMPAGLIFLOZIN 10 MG TABLET PO (08:08)
[2022-09-18] MEDS: APIXABAN 5 MG TABLET PO ×2 (08:08→20:56)
[2022-09-18] MEDS: ASPIRIN 81 MG ENTERIC TABLET PO (08:08)
[2022-09-18] MEDS: FUROSEMIDE 40 MG TABLET PO (08:08)
[2022-09-18 08:15] LABS: Glucose Point of Care 149 mg/dl (65-105)
[2022-09-18 11:14] LABS: Estimated CRCL calculation 43 ml/min; Estimated Glomerular Filt Rate 46
[2022-09-18 11:47] LABS: Glucose Point of Care 198 mg/dl (65-105)
[2022-09-18 12:22] LABS: Vancomycin Trough 6.9 ug/mL (10.0-20.0)
--- NOTE | 2022-09-18 12:40 | PM.IMPN ---
Progress Note: A&P Assessment and Plan (1) Sepsis: Code(s): A41.9 - Sepsis, unspecified organism Status: Acute Assessment and Plan: Improved, continue antibiotics. (2) Postoperative wound infection: Code(s): T81.49XA - Infection following a procedure, other surgical site, initial encounter Status: Acute Assessment and Plan: Continue IV antibiotics. (3) Insulin dependent diabetes mellitus: Status: Chronic Assessment and Plan: Blood sugars are okay. (4) Abnormal CT scan, lung: Code(s): R91.8 - Other nonspecific abnormal finding of lung field Status: Acute Assessment and Plan: Patchy bilateral lower lobe infiltrates were noted on CT of the abdomen and pelvis. He does have lung disease in this may be a chronic finding however he has been short of breath and coughing. Continue imipenem as above. Sputum culture ordered. Continue antibiotics. (5) Chronic kidney disease: Code(s): N18.9 - Chronic kidney disease, unspecified Status: Acute Assessment and Plan: Stable on review of previous labs. (6) Hypertension: Code(s): I10 - Essential (primary) hypertension Status: Acute Assessment and Plan: Creatinine is at baseline (7) Chronic respiratory failure with hypoxia, on home oxygen therapy: Code(s): J96.11 - Chronic respiratory failure with hypoxia; Z99.81 - Dependence on supplemental oxygen Status: Acute Assessment and Plan: Stable, monitor (8) Paroxysmal atrial fibrillation: Code(s): I48.0 - Paroxysmal atrial fibrillation Status: Acute Assessment and Plan: In a sinus rhythm at this time. Eliquis on hold as he is going to the OR tonight. (9) Obstructive sleep apnea on CPAP: Code(s): G47.33 - Obstructive sleep apnea (adult) (pediatric); Z99.89 - Dependence on other enabling machines and devices Status: Acute Assessment and Plan: CPAP will be provided for the patient to use while hospitalized. Subjective Date/time seen: 09/18/22 12:40 No complaints Exam Narrative: General:?Moderately ill-appearing male in the semi-Borrero position in bed. Weight: 89.7 kg. BMI: 29.2. HEENT:??Normocephalic, atraumatic.? PERRL, EOMI. Dry mucous membranes. Neck:??Supple. Respiratory:?Respirations are nonlabored. Coarse lung sounds at the bases. Cardiovascular:??Regular rate and rhythm with S1-S2. Gastrointestinal:??Abdomen is nondistended with positive bowel sounds. Low abdominal incision from hip to hip show several areas of dehiscence with a few unstageable eschars, erythema and edema, and some open areas with thick purulent drainage. Skin:?Cool at and dry. Extremities:??No cyanosis, clubbing, or edema. Radial and pedal pulses intact. Neurological:??Alert.? Cranial nerves 2-12 are grossly intact. No gross focal deficits to casual conversation. Psychiatric:??Pleasant and cooperative. Appropriate mood and affect. Objective Data Vital Signs Vital Signs: Vital Signs - 24 hr 09/17/22 14:12 09/17/22 19:00 09/17/22 20:45 Temperature 97.7 F 97.6 F Pulse Rate 70 60 Respiratory Rate 16 20 Blood Pressure 121/80 168/60 H Pulse Oximetry 97 98 Oxygen Delivery Room Air 09/17/22 23:00 09/18/22 03:00 09/18/22 08:08 Temperature 98 F 98.1 F Pulse Rate 60 60 Respiratory Rate 20 14 Blood Pressure 180/60 H 153/59 H Pulse Oximetry 97 93 Oxygen Delivery Room Air Intake/Output Intake/Output: Intake & Output 09/15/22 09/16/22 09/17/22 09/18/22 23:59 23:59 23:59 23:59 Intake Total 1850 3610 5370 900 Output Total 38 1045 4895 1340 Balance 1812 2565 475 -440 Meds/Results Medications: Active Medications Generic Name Dose Route Start Last Admin Trade Name Freq PRN Reason Stop Dose Admin Acetaminophen 325 mg 09/16/22 04:05 09/18/22 05:23 Acetaminophen 325 Mg Tablet PO 325 mg Q4H PRN Administration Mild Pain
[2022-09-18] MEDS: SODIUM CHLORIDE 0.9% IV 1,000 ML 100 ML IV CONT (12:54)
[2022-09-18 14:00] VITALS: BP 137/72; PULSE 83; RESP 17; TEMP 36.2; O2SAT 97
[2022-09-18 16:54] LABS: Glucose Point of Care 238 mg/dl (65-105)
[2022-09-18] MEDS: INSULIN ASPART (*BKC) 100 UNITS/ML SUB-Q (16:57)
[2022-09-18] MEDS: MELATONIN 5 MG TABLET PO (20:56)
[2022-09-18 21:00] LABS: Glucose Point of Care 182 mg/dl (65-105)
[2022-09-18 21:41] VITALS: BP 181/61; PULSE 66; RESP 18; TEMP 36.2; O2SAT 97
[2022-09-19] MEDS: SODIUM CHLORIDE 0.9% IV 1,000 ML 100 ML IV CONT ×2 (05:23→23:24)
[2022-09-19 05:53] VITALS: BP 168/67; PULSE 62; RESP 16; TEMP 36.5; O2SAT 99
[2022-09-19 07:57] LABS: Glucose Point of Care 163 mg/dl (65-105)
--- NOTE | 2022-09-19 08:04 | WPDPN ---
Progress Note: A&P Assessment and Plan (1) Postoperative wound infection: Code(s): T81.49XA - Infection following a procedure, other surgical site, initial encounter Status: Acute Assessment and Plan: Doing well after abdominoplasty and subsequent washout. Social support. He is now getting more support from sister and [id number] and is amenable to a short term care facility to help him through recovery. Abdominal binder / dry dressing to abdomen daily. Appreciate nutrition assistance to optimize nutrition. Continue to encourage PO intake. He state he likes the shakes. Appreciate hospitalist assistance / abx management. Cultures noted. Will discharge when arrangements made / per hospitalist recommendations. No evidence of active bleeding. (2) Skin laxity: Code(s): L57.4 - Cutis laxa senilis Status: Acute Subjective Date/time seen: 09/19/22 08:04 Interval history: He is s/p abdominoplasty on 08/11/2022.? Postoperatively he had some erythema and felt fatigued, with antibiotics he improved.? Four weeks postoperatively (09/06/2022) he was doing very well and making significant improvement.? He was healing as expected.? He states around 09/07-09/08 (approximately 24 hours after seeing us) he began having drainage and started feeling ill.? He states he never contacted us or his PCP.? He also states that he stopped taking all of his medications around 09/07 - 09/08 last week that he should take daily. He also states he wasn't wearing binder at home, only for appointments. Last night he says he took Melatonin and slept very well. No complaints. No fever / chills. No nausea / vomiting. No SoB. No CP. No calf tenderness. Review of Systems Review of Systems: All systems reviewed & are unremarkable except as noted in HPI and below Exam Narrative: Alert & Oriented NOD Respiratory unlabored Abdomen with good color / cap refill. No purulence. No fluctuance. No hematoma. No seroma. Drains in place and becoming serous although still somewhat white. No calf tenderness. Negative Truong's Objective Data Vital Signs Vital Signs: Vital Signs - 24 hr 09/18/22 08:08 09/18/22 14:00 09/18/22 21:41 Temperature 36.2 C L 36.2 C L Pulse Rate 83 66 Respiratory Rate 17 18 Blood Pressure 137/72 181/61 H Pulse Oximetry 97 97 Oxygen Delivery Room Air 09/18/22 21:00 09/19/22 05:53 Temperature 36.5 C Pulse Rate 62 Respiratory Rate 16 Blood Pressure 168/67 H Pulse Oximetry 99 Oxygen Delivery Room Air Intake/Output Intake/Output: Intake & Output 09/16/22 09/17/22 09/18/22 09/19/22 23:59 23:59 23:59 23:59 Intake Total 3610 5370 4760 300 Output Total 1040 6089 3180 680 Balance 2565 561 1580 380 Meds/Results Medications: Active Medications Generic Name Dose Route Start Last Admin Trade Name Freq PRN Reason Stop Dose Admin Acetaminophen 325 mg 09/16/22 04:05 09/18/22 05:23 Acetaminophen 325 Mg Tablet PO 325 mg Q4H PRN Administration Mild Pain (1-3) or Headache Apixaban 5 mg 09/15/22 23:00 09/18/22 20:56 Apixaban 5 Mg Tablet PO 5 mg Q12HR YULIA Administration Aspirin 81 mg 09/16/22 09:00 09/18/22 08:08 Aspirin 81 Mg Enteric Tablet PO 81 mg DAILY YULIA Administration Atorvastatin Calcium 40 mg 09/16/22 09:00 09/18/22 08:08 Atorvastatin 40 Mg Tablet PO 40 mg DAILY YULIA Administration Dextrose 12.5 gm 09/15/22 20:57 Dextrose 50% 25 Gm/50 Ml Syringe IV PUSH PRN PRN Hypoglycemia Protocol Empagliflozin 10 mg 09/16/22 09:00 09/18/22 08:08 Empagliflozin 10 Mg Tablet PO 10 mg DAILY YULIA Administration Furosemide 40 mg 09/16/22 09:00 09/18/22 08:08 Furosemide 40 Mg Tablet PO 40 mg DAILY YULIA Administration Glucagon 1 mg 09/15/22 20:57 Glucagon For Inj 1 Mg Vial IM PRN PRN Hypoglycemia Protocol Glucose 15 gm 09/15/22 20:57 Glucose Oral Gel 15 Gm Of Glucse
[2022-09-19] MEDS: INDAPAMIDE 2.5 MG TABLET PO (09:38)
[2022-09-19] MEDS: EMPAGLIFLOZIN 10 MG TABLET PO (09:38)
[2022-09-19] MEDS: ASPIRIN 81 MG ENTERIC TABLET PO (09:38)
[2022-09-19] MEDS: ATORVASTATIN 40 MG TABLET PO (09:38)
[2022-09-19] MEDS: FUROSEMIDE 40 MG TABLET PO (09:39)
[2022-09-19] MEDS: APIXABAN 5 MG TABLET PO ×2 (09:39→19:57)
[2022-09-19 09:51] LABS: Basophils Absolute Auto 0.1 K/mm3 (0.0-0.1); Basophils Percent Auto 0.4 % (0.2-1.2); Eosinophils Absolute Auto 0.4 K/mm3 (0-0.3); Eosinophils Percent Auto 2.9 % (0-4.4); Hemoglobin 9.3 g/dL (14.0-18.0); Immature Granulocyte Absolute 0.45 K/mm3 (0.00-0.031); Immature Granulocyte Percent A 3.7 % (0-0.5); Lymphocytes Percent Auto 6.7 % (18.3-44.2); Mean Corpuscular HGB Conc 33.2 g/dl (32-36); Mean Corpuscular Hemoglobin 30.9 pg (26-34); Mean Platelet Volume 8.4 fl (7.4-10.4); Monocytes Absolute Auto 0.5 K/mm3 (0.1-0.6); Monocytes Percent Auto 4.5 % (2.6-8.5); Neutrophils Absolute Auto 9.8 K/mm3 (1.3-6.7); Neutrophils Percent Auto 81.8 % (45.5-73.1); Platelet Count Result 281 k/mm3 (150-375); Red Blood Count 3.01 M/mm3 (4.6-6.20); Red Cell Distribution Width 13.8 % (11.5-14.5)
[2022-09-19 10:15] LABS: Anion Gap 5 mmol/L (8-16); Blood Urea Nitrogen 25 mg/dL (9-20); Calcium 7.7 mg/dL (8.4-10.2); Carbon Dioxide 24 mmol/L (22-30); Chloride 105 mmol/L (98-107); Estimated CRCL calculation 43 ml/min; Estimated Glomerular Filt Rate 46; Glucose 211 mg/dL (65-110); Potassium 2.8 mmol/L (3.4-5.0); Sodium 134 mmol/L (137-145)
--- NOTE | 2022-09-19 10:22 | PC.NURSE ---
After completing daily dressing change, attempted to place abdominal binder on pt. Pt refused stated that it was too tight and cut into him. Education provided as to purpose of binder and that this binder is actually larger than was originally ordered by doctor. Pt stated again that it cuts into me and refused the binder. Pt made aware that doctor would be notified of the aforementioned and to see if alternatives were available.
[2022-09-19 11:39] LABS: Glucose Point of Care 231 mg/dl (65-105)
--- NOTE | 2022-09-19 12:19 | PM.IMPN ---
Progress Note: A&P Assessment and Plan (1) Sepsis: Code(s): A41.9 - Sepsis, unspecified organism Status: Acute Assessment and Plan: Improved, continue antibiotics. (2) Postoperative wound infection: Code(s): T81.49XA - Infection following a procedure, other surgical site, initial encounter Status: Acute Assessment and Plan: Continue IV antibiotics. (3) Insulin dependent diabetes mellitus: Status: Chronic Assessment and Plan: Blood sugars are okay. (4) Abnormal CT scan, lung: Code(s): R91.8 - Other nonspecific abnormal finding of lung field Status: Acute Assessment and Plan: Patchy bilateral lower lobe infiltrates were noted on CT of the abdomen and pelvis. He does have lung disease in this may be a chronic finding however he has been short of breath and coughing. Continue imipenem as above. Sputum culture ordered. Continue antibiotics. (5) Chronic kidney disease: Code(s): N18.9 - Chronic kidney disease, unspecified Status: Acute Assessment and Plan: Stable on review of previous labs. (6) Hypertension: Code(s): I10 - Essential (primary) hypertension Status: Acute Assessment and Plan: Creatinine is at baseline (7) Chronic respiratory failure with hypoxia, on home oxygen therapy: Code(s): J96.11 - Chronic respiratory failure with hypoxia; Z99.81 - Dependence on supplemental oxygen Status: Acute Assessment and Plan: Stable, monitor (8) Paroxysmal atrial fibrillation: Code(s): I48.0 - Paroxysmal atrial fibrillation Status: Acute Assessment and Plan: In a sinus rhythm at this time. Eliquis on hold as he is going to the OR tonight. (9) Obstructive sleep apnea on CPAP: Code(s): G47.33 - Obstructive sleep apnea (adult) (pediatric); Z99.89 - Dependence on other enabling machines and devices Status: Acute Assessment and Plan: CPAP will be provided for the patient to use while hospitalized. Subjective Date/time seen: 09/19/22 12:19 No complaints Exam Narrative: General:?Moderately ill-appearing male in the semi-Borrero position in bed. Weight: 89.7 kg. BMI: 29.2. HEENT:??Normocephalic, atraumatic.? PERRL, EOMI. Dry mucous membranes. Neck:??Supple. Respiratory:?Respirations are nonlabored. Coarse lung sounds at the bases. Cardiovascular:??Regular rate and rhythm with S1-S2. Gastrointestinal:??Abdomen is nondistended with positive bowel sounds. Low abdominal incision from hip to hip show several areas of dehiscence with a few unstageable eschars, erythema and edema, and some open areas with thick purulent drainage. Skin:?Cool at and dry. Extremities:??No cyanosis, clubbing, or edema. Radial and pedal pulses intact. Neurological:??Alert.? Cranial nerves 2-12 are grossly intact. No gross focal deficits to casual conversation. Psychiatric:??Pleasant and cooperative. Appropriate mood and affect. Objective Data Vital Signs Vital Signs: Vital Signs - 24 hr 09/18/22 14:00 09/18/22 21:41 09/18/22 21:00 Temperature 97.1 F L 97.2 F L Pulse Rate 83 66 Respiratory Rate 17 18 Blood Pressure 137/72 181/61 H Pulse Oximetry 97 97 Oxygen Delivery Room Air 09/19/22 05:53 09/19/22 09:35 Temperature 97.7 F Pulse Rate 62 Respiratory Rate 16 Blood Pressure 168/67 H Pulse Oximetry 99 Oxygen Delivery Room Air Intake/Output Intake/Output: Intake & Output 09/16/22 09/17/22 09/18/22 09/19/22 23:59 23:59 23:59 23:59 Intake Total 3610 5370 4760 300 Output Total 1045 4895 3180 680 Balance 6848 995 1580 -380 Meds/Results Medications: Active Medications Generic Name Dose Route Start Last Admin Trade Name Freq PRN Reason Stop Dose Admin Acetaminophen 325 mg 09/16/22 04:05 09/18/22 05:23 Acetaminophen 325 Mg Tablet PO 325 mg Q4H PRN Administration Mild Pain (1-3) or Headache Apixaban 5 m
[2022-09-19 13:08] LABS: Pneumococcal Antigen Urine Not Detected (Not Detected)
[2022-09-19] MEDS: POTASSIUM CHLORIDE 20 MEQ TABLET.ER 40 MEQ PO ×2 (13:13→17:07)
[2022-09-19] MEDS: INSULIN ASPART (*BKC) 100 UNITS/ML SUB-Q (13:13)
[2022-09-19 14:00] VITALS: BP 141/72; PULSE 90; RESP 21; TEMP 36.4; O2SAT 97
[2022-09-19 16:53] LABS: Glucose Point of Care 184 mg/dl (65-105)
[2022-09-19 20:00] VITALS: O2SAT 100
[2022-09-19 20:04] VITALS: BP 165/61; PULSE 62; RESP 16; TEMP 36.1; O2SAT 100
[2022-09-19 20:24] LABS: Alanine Aminotransferase 33 U/L (6-50); Albumin Level 2.9 g/dL (3.5-5.1); Alkaline Phosphatase 149 U/L (38-126); Anion Gap 5 mmol/L (8-16); Aspartate Amino Transferase 38 U/L (17-59); Bilirubin,Total 0.4 mg/dL (0.2-1.3); Blood Urea Nitrogen 25 mg/dL (9-20); Calcium 7.8 mg/dL (8.4-10.2); Carbon Dioxide 26 mmol/L (22-30); Chloride 102 mmol/L (98-107); Estimated CRCL calculation 41 ml/min; Estimated Glomerular Filt Rate 42; Glucose 208 mg/dL (65-110); Potassium 3.4 mmol/L (3.4-5.0); Sodium 133 mmol/L (137-145)
[2022-09-19 20:38] LABS: Glucose Point of Care 209 mg/dl (65-105)
[2022-09-20 00:58] LABS: Vancomycin Trough 19.6 ug/mL (10.0-20.0)
[2022-09-20 06:00] VITALS: BP 169/60; PULSE 66; RESP 14; TEMP 36.5; O2SAT 97
--- NOTE | 2022-09-20 06:28 | WPDPN ---
Progress Note: A&P Assessment and Plan (1) Postoperative wound infection: Code(s): T81.49XA - Infection following a procedure, other surgical site, initial encounter Status: Acute Assessment and Plan: Doing well after abdominoplasty and subsequent washout. Social support. He is now getting more support from sister and [id number] and is amenable to a short term care facility to help him through recovery. Abdominal binder / dry dressing to abdomen daily. Appreciate nutrition assistance to optimize nutrition. Continue to encourage PO intake. He state he likes the shakes. Appreciate hospitalist assistance / abx management. Cultures noted. Will discharge when arrangements made / per hospitalist recommendations. No evidence of active bleeding. (2) Skin laxity: Code(s): L57.4 - Cutis laxa senilis Status: Acute Subjective Date/time seen: 09/20/22 06:28 Interval history: He is s/p abdominoplasty on 08/11/2022.? Postoperatively he had some erythema and felt fatigued, with antibiotics he improved.? Four weeks postoperatively (09/06/2022) he was doing very well and making significant improvement.? He was healing as expected.? He states around 09/07-09/08 (approximately 24 hours after seeing us) he began having drainage and started feeling ill.? He states he never contacted us or his PCP.? He also states that he stopped taking all of his medications around 09/07 - 09/08 last week that he should take daily. He also states he wasn't wearing binder at home, only for appointments. Doing well today. Patient pulled out one of his two drains yesterday. No complaints. No fever / chills. No nausea / vomiting. No SoB. No CP. No calf tenderness. Review of Systems Review of Systems: All systems reviewed & are unremarkable except as noted in HPI and below Exam Narrative: Alert & Oriented NOD Respiratory unlabored Abdomen with good color / cap refill. No purulence. No fluctuance. No hematoma. No seroma. Drain serosanguineous today. No calf tenderness. Negative Truong's Objective Data Vital Signs Vital Signs: Vital Signs - 24 hr 09/19/22 09:35 09/19/22 14:00 09/19/22 20:04 Temperature 36.4 C L 36.1 C L Pulse Rate 90 62 Respiratory Rate 21 H 16 Blood Pressure 141/72 H 165/61 H Pulse Oximetry 97 100 Oxygen Delivery Room Air 09/19/22 20:00 09/20/22 06:00 Temperature 36.5 C Pulse Rate 66 Respiratory Rate 14 Blood Pressure 169/60 H Pulse Oximetry 100 97 Oxygen Delivery Room Air Intake/Output Intake/Output: Intake & Output 09/17/22 09/18/22 09/19/22 09/20/22 23:59 23:59 23:59 23:59 Intake Total 5370 4760 2100 250 Output Total 4896 3180 680 Balance 475 1580 1420 250 Meds/Results Medications: Active Medications Generic Name Dose Route Start Last Admin Trade Name Freq PRN Reason Stop Dose Admin Acetaminophen 325 mg 09/16/22 04:05 09/18/22 05:23 Acetaminophen 325 Mg Tablet PO 325 mg Q4H PRN Administration Mild Pain (1-3) or Headache Apixaban 5 mg 09/15/22 23:00 09/19/22 19:57 Apixaban 5 Mg Tablet PO 5 mg Q12HR YULIA Administration Aspirin 81 mg 09/16/22 09:00 09/19/22 09:38 Aspirin 81 Mg Enteric Tablet PO 81 mg DAILY YULIA Administration Atorvastatin Calcium 40 mg 09/16/22 09:00 09/19/22 09:38 Atorvastatin 40 Mg Tablet PO 40 mg DAILY YULIA Administration Dextrose 12.5 gm 09/15/22 20:57 Dextrose 50% 25 Gm/50 Ml Syringe IV PUSH PRN PRN Hypoglycemia Protocol Empagliflozin 10 mg 09/16/22 09:00 09/19/22 09:38 Empagliflozin 10 Mg Tablet PO 10 mg DAILY YULIA Administration Furosemide 40 mg 09/16/22 09:00 09/19/22 09:39 Furosemide 40 Mg Tablet PO 40 mg DAILY YULIA Administration Glucagon 1 mg 09/15/22 20:57 Glucagon For Inj 1 Mg Vial IM PRN PRN Hypoglycemia Protocol Glucose 15 gm 09/15/22 20:57 Glucose Oral Gel 15 Gm Of Glucse In 37.5 Gm Tube PO
[2022-09-20 06:47] LABS: Estimated CRCL calculation 43 ml/min; Estimated Glomerular Filt Rate 54
[2022-09-20 08:31] LABS: Glucose Point of Care 169 mg/dl (65-105)
[2022-09-20] MEDS: APIXABAN 5 MG TABLET PO (09:14)
[2022-09-20] MEDS: FUROSEMIDE 40 MG TABLET PO (09:14)
[2022-09-20] MEDS: ATORVASTATIN 40 MG TABLET PO (09:14)
[2022-09-20] MEDS: ASPIRIN 81 MG ENTERIC TABLET PO (09:14)
[2022-09-20] MEDS: EMPAGLIFLOZIN 10 MG TABLET PO (09:14)
[2022-09-20] MEDS: POTASSIUM CHLORIDE 20 MEQ TABLET.ER 40 MEQ PO (09:14)
[2022-09-20] MEDS: INDAPAMIDE 2.5 MG TABLET PO (09:14)
[2022-09-20] MEDS: traMADol HCL (*CRX) 50 MG TABLET PO (09:18)
[2022-09-20 12:11] LABS: Glucose Point of Care 158 mg/dl (65-105)
--- NOTE | 2022-09-20 12:15 | PM.DS ---
DS: Admitting Diagnosis Discharge Date September 20, 2022 Admitting Diagnosis Skin infection DS: Discharge Diagnosis Discharge Diagnosis (1) Sepsis: Code(s): A41.9 - Sepsis, unspecified organism Status: Acute Assessment and Plan: Improved, continue antibiotics. (2) Postoperative wound infection: Code(s): T81.49XA - Infection following a procedure, other surgical site, initial encounter Status: Acute Assessment and Plan: Continue IV antibiotics. (3) Insulin dependent diabetes mellitus: Status: Chronic Assessment and Plan: Blood sugars are okay. (4) Abnormal CT scan, lung: Code(s): R91.8 - Other nonspecific abnormal finding of lung field Status: Acute Assessment and Plan: Patchy bilateral lower lobe infiltrates were noted on CT of the abdomen and pelvis. He does have lung disease in this may be a chronic finding however he has been short of breath and coughing. Continue imipenem as above. Sputum culture ordered. Continue antibiotics. (5) Chronic kidney disease: Code(s): N18.9 - Chronic kidney disease, unspecified Status: Acute Assessment and Plan: Stable on review of previous labs. (6) Hypertension: Code(s): I10 - Essential (primary) hypertension Status: Acute Assessment and Plan: Creatinine is at baseline (7) Chronic respiratory failure with hypoxia, on home oxygen therapy: Code(s): J96.11 - Chronic respiratory failure with hypoxia; Z99.81 - Dependence on supplemental oxygen Status: Acute Assessment and Plan: Stable, monitor (8) Paroxysmal atrial fibrillation: Code(s): I48.0 - Paroxysmal atrial fibrillation Status: Acute Assessment and Plan: In a sinus rhythm at this time. Eliquis on hold as he is going to the OR [facility]. (9) Obstructive sleep apnea on CPAP: Code(s): G47.33 - Obstructive sleep apnea (adult) (pediatric); Z99.89 - Dependence on other enabling machines and devices Status: Acute Assessment and Plan: CPAP will be provided for the patient to use while hospitalized. DS: Summary Hospital Course Hospital Course: Patient is a 77-year-old gentleman who was admitted for a skin infection after an abdominoplasty performed by Plastic surgery. Patient was seen in outpatient setting and found have an infection he was subsequently admitted given IV antibiotics. He has done exceptionally well. He still does have 1 drain and will need follow-up with plastics on discharge. Patient will be given 7 more days of additional antibiotics. Decision for longer-term antibiotics can be made by Dr Doyle. Time Spent with Patient Time attestation: Total time spent providing and/or coordinating discharge services: Exam Narrative: General:?Moderately ill-appearing male in the semi-Borrero position in bed. Weight: 89.7 kg. BMI: 29.2. HEENT:??Normocephalic, atraumatic.? PERRL, EOMI. Dry mucous membranes. Neck:??Supple. Respiratory:?Respirations are nonlabored. Coarse lung sounds at the bases. Cardiovascular:??Regular rate and rhythm with S1-S2. Gastrointestinal:??Abdomen is nondistended with positive bowel sounds. Low abdominal incision from hip to hip show several areas of dehiscence with a few unstageable eschars, erythema and edema, and some open areas with thick purulent drainage. Skin:?Cool at and dry. Extremities:??No cyanosis, clubbing, or edema. Radial and pedal pulses intact. Neurological:??Alert.? Cranial nerves 2-12 are grossly intact. No gross focal deficits to casual conversation. Psychiatric:??Pleasant and cooperative. Appropriate mood and affect. DS: Data Data Completed and Pending Labs on day of discharge: Labs from last 24 hours 09/20/22 09/20/22 09/20/22 12:03 08:22 06:23 Sodium Potassium Chloride Carbon Dioxide Anion Gap BUN Creatinine 1.30 Estim Creat Clear Calc 43 Estimate
[2022-09-20 14:00] VITALS: BP 187/69; PULSE 60; RESP 16; TEMP 36.2; O2SAT 99
[2022-09-20 17:31] LABS: Legionella pneumophila Ag Ur Not Detected (Not Detected)
[2022-09-20 18:02] LABS: Mycoplasma IgM Antibody Titer 315 U/mL (<770)
== END 2022-09-20 14:45 | disposition home or self-care (01) | DRG 721 ==
LOC: ANHED 13:05 → ANH3MEDSUR 15:14
PROVIDERS: Physician Assistant; Surgery Plastic and Reconstructive Surgery; Admitting Provider Chiropractor; Emergency Provider General Practice; PCP Internal Medicine; Visit Provider Chiropractor
PROC: 0J980ZX Drainage of Abdomen Subcutaneous Tissue and Fascia, Open Approach, Diagnostic (ICD-10-PCS; principal; 2022-09-15 19:45)
DX: T81.49XA Infection following a procedure, other surgical site, initial encounter (principal); A41.9 Sepsis, unspecified organism; J96.11 Chronic respiratory failure with hypoxia; E11.22 Type 2 diabetes mellitus with diabetic chronic kidney disease; I48.0 Paroxysmal atrial fibrillation; T81.31XA Disruption of external operation (surgical) wound, not elsewhere classified, initial encounter; Z99.81 Dependence on supplemental oxygen; R91.8 Other nonspecific abnormal finding of lung field; I12.9 Hypertensive chronic kidney disease with stage 1 through stage 4 chronic kidney disease, or unspecified chronic kidney disease; N18.9 Chronic kidney disease, unspecified; G47.33 Obstructive sleep apnea (adult) (pediatric); K21.9 Gastro-esophageal reflux disease without esophagitis; L57.4 Cutis laxa senilis; E78.5 Hyperlipidemia, unspecified; Z79.4 Long term (current) use of insulin; Z95.0 Presence of cardiac pacemaker
CPT/HCPCS: 36415; 36600; 71045; 74177; 80048; 80053; 80202; 81001; 82010; 82375; 82565; 82805; 82948; 83036; 83050; 83605; 83735; 84134; 85025; 85610; 85730; 86140; 86738; 87040; 87070; 87075; 87076; 87077; 87081; 87205; 87449; 87899; 93005; 96361; 96365; 96375; 97110; 97161; 97165; 99285; A9270; J0690; J0743; J1170; J1580; J1815; J2405; J2704; J3010; J3370; J7030; J7040; J7050; J7120; Q9967